=== PATIENT | male | born 1960 | race Caucasian/White ===

== ENCOUNTER 2016-12-31 18:10 | Emergency (ER) | payer OTHER ==
[~2016-12-31] VITALS: Ht 172.7 cm; Wt 79.4 kg
[~2016-12-31 18:10] MED LIST: ATORVASTATIN CA80 M1 PO; BLM PO; LEVOTHYROXINE50 MCG PO; LOSARTAN POTASS50 MG PO; MEDROL DOSEPAK1 PAC PO; ROBITUSSIN W/CO10 ML PO; TESSALON PERLE100 MG PO
[2016-12-31] MEDS ORDERED: LOSARTAN POTASS50 M1 PO (18:49)
--- NOTE | 2016-12-31 18:49 | ED GENERAL ADULT ---
History of Present Illness General Chief Complaint: General Adult Stated Complaint: PT HAS HIGH BLOOD PRESSURE Source: patient Exam Limitations: no limitations Vital Signs & Intake/Output Vital Signs & Intake/Output Vital Signs Date Time Temp Pulse Resp B/P Pulse O2 O2 Flow FiO2 Ox Delivery Rate 12/31 1937 82 126/75 12/31 1915 80 18 135/76 12/31 1855 86 138/84 12/31 1830 98 Room Air 12/31 1814 97.2 82 18 166/94 99 Room Air ED Intake and Output 01/01 0000 12/31 1200 Intake Total Output Total Balance Patient 175 lb Weight Allergies Coded Allergies: NO KNOWN ALLERGIES (07/29/16) Reconcile Medications Atorvastatin Calcium 10 MG TABLET 1 TAB PO Monday CHOLESTEROL ( Reported) Cholecalciferol (Vitamin D3) (Vitamin D) 2,000 UNIT TABLET 1 TAB PO DAILY SUPPLEMENT (Reported) Cyanocobalamin (Vitamin B-12) (Vitamin B-12) 500 MCG TAB.SUBL 1 TAB PO DAILY SUPPLEMENT (Reported) Levothyroxine Sodium 50 MCG TABLET 1 TAB PO DAILY THYROID (Reported) Lorazepam (Ativan) 0.5 MG TABLET 1 TAB PO BIDP PRN anxiety Losartan Potassium 50 MG TABLET 1 TAB PO BID BP (Reported) Multivitamin (Multi-Day Vitamins) 1 EACH TABLET 1 TAB PO DAILY SUPPLEMENT ( Reported) Triage Note: PT REPORTS TO HAVE CHECKED HIS BP AT HOME AND IT WAS 176/100 FOR HE IS REQUESTING EVALUATION. HE ALSO REPORTS HX OF ANXIETY. CURRENTLY ON LOSARTAN 50 MG BID. HAS BEEN TAKING IT PRESCRIBED. Triage Nurses Notes Reviewed? yes Onset: Abrupt Duration: hour(s):, resolved prior to arrival No Modifying Factors: none HPI: 56-year-old male with a history of hypertension and anxiety comes into emergency room for further evaluation of blood pressure being elevated at home. Patient reports that he is in the process of getting an MRA of his brain because he's been having this mild dull headache 1 out of 10 for the past 6-8 weeks. He was concerned because his family members have of aneurysms. He denies any vomiting chest pain shortness of breath abdominal pain. He reports that today he checked his blood pressure and reports it was in the 140s. He said that was low back eyes he went to lay down recheck in a few more times and it went up to 170s. Patient denies like I said any chest pain shortness of breath diaphoresis nausea vomiting or headache from any change in its baseline. Denies any slurring words or confusion. Patient reports he was feeling extremely anxious and felt a pulsation in the back of his neck but that has since resolved. (DARVIN JACKSON) Past History Travel History Traveled to [place] past 21 day No Medical History Any Pertinent Medical History? see below for history Neurological: NONE EENT: NONE Cardiovascular: hypertension, hyperlipidemia Respiratory: NONE Gastrointestinal: NONE Hepatic: NONE Renal: NONE Musculoskeletal: NONE Psychiatric: NONE Endocrine: hypothyroidism Blood Disorders: NONE MANAGER OF PATIENT/Reproductive: NONE Tetanus Vaccine: 01/26/13 Surgical History Surgical History: non-contributory Psychosocial History What is your primary language Kazakh Tobacco Use: Never used Family History Hx Contributory? No (DARVIN JACKSON) Review of Systems Review of Systems Constitutional: Reports: no symptoms. EENTM: Reports: no symptoms. Respiratory: Reports: no symptoms. Cardiovascular: Reports: no symptoms. GI: Reports: no symptoms. Genitourinary: Reports: no symptoms. Musculoskeletal: Reports: no symptoms. Skin: Reports: no symptoms. Neurological/Psychological: Reports: see HPI. Hematologic/Endocrine: Reports: no symptoms. Immunologic/Allergic: Reports: no symptoms. All Other Systems: Reviewed and Negative (DARVIN JACKSON) Physical Exam Physical Exam General Appearance: well developed/nourished, no apparent distress, alert, awake Head: atraumatic, normal appearance Eyes: Bilateral: normal appearance, PERRL, EOMI. Ears, Nose, Throat: normal pharynx, normal ENT inspection, hearing grossly normal Neck: normal inspection, supple, full range of motion Respiratory: normal breath sounds, chest non-tender, no respiratory distress Cardiovascular: regular rate/rhythm Gastrointestinal: soft Back: normal inspection Extremities: normal inspection, normal range of motion Neurologic/Psych: no motor/sensory deficits, awake, alert, oriented x 3, normal gait, normal mood/affect, repairer helper II-XII nml as tested, finger to nose intact, mas to heel intact Skin: intact, normal color Core Measures ACS in differential dx? No CVA/TIA Diagnosis: No Severe Sepsis Present: No Septic Shock Present: No (DARVIN JACKSON) Progress Differential Diagnoses I considered the following diagnoses in my evaluation of the patient: Hypertensive urgency, hypertension, anxiety, CVA, acute PA, aneurysm, tension headache, migraine headache, sinus disease, Plan of Care: Current Medications Sig/Usha Start time Last Medication Dose Stop Time Status Admin Lorazepam 0.5 MG ONE ONE 12/31 1899 UNVr (Ativan) 12/31 1900 Initial ED EKG: none Comments: 12/31/2016 7:15:25 PM Patient clinically looks well. Patient is nontoxic appearing. Patient is in no apparent distress. I offered patient a full evaluation with EKG blood work and CAT scan. Due to the fact that he is a symptomatically at the moment I told him it is likely not necessary to do a complete workup. His repeat blood pressure significantly improved. Patient given a dose of Ativan and will be observed here in the emergency room. As stated before patient has no symptoms at this time. Patient has not had any chest pain or tenderness of breath. Patient saw a manager electronic back this past fall and had a normal stress test echocardiogram and EKG he reports. Patient reports that he just got very anxious this afternoon. (HARRISON TRIPP,DARVIN) Departure Departure Disposition: HOME OR SELF CARE Condition: Stable Clinical Impression Primary Impression: Hypertension Secondary Impressions: Anxiety Referrals: MAGY ESPANA,MALCOLM Avelar (PCP/Family) Additional Instructions: Take ativan as prescribed as needed for anxiety. F/U for MRA of you brain as already scheduled. return to ed if any chest pain, shrtoness of breath, increased headache, vomiting, sweating, confusion, or any other concerns/ worsening of symptoms. Please go over results of todays visit with your primary care dr and contact them on monday to let them know you were here in ER. Follow-up with your primary care physician this week. Return to the emergency room at any time sooner if you have worsening of your symptoms or any other concerns. Please note that there might be incidental findings in your evaluation that are unrelated to the current emergency department visit. Please notify your primary care doctor about this emergency department visit in order to obtain and review all of the testing performed so that these incidental findings can be monitored as needed. If you were prescribed a narcotic use caution as this medication is highly addictive and will make you drowsy use for breakthrough pain only. No driving, drinking alcohol or operating machinary when taking. If you had an x-ray performed, please understand that some fractures may not be seen on the initial set of x-rays. If your symptoms persist you might need a repeat set of x-rays to check for such a fracture. If you had a laceration evaluated, please understand that foreign bodies such as glass or wood may not be visible to the naked eye or on plain x-rays. If the wound becomes red, swollen, increasingly more painful or if there is any drainage from the wound, please have it reevaluated by a physician for the possibility of a retained foreign body. Departure Forms: Customer Survey General Discharge Information Prescriptions: Current Visit Scripts Lorazepam (Ativan) 1 TAB PO BIDP PRN anxiety #20 TAB (DARVIN JACKSON) PA/QUALITY ASSURANCE Co-Sign Statement Statement: ED Attending supervision documentation- [] I saw and evaluated the patient. I have also reviewed all the pertinent lab results and diagnostic results. I agree with the findings and the plan of care as documented in the PA's/QUALITY ASSURANCE's documentation. [X] I have reviewed the ED Record and agree with the PA's/QUALITY ASSURANCE's documentation. [] Additions or exceptions (if any) to the PAs/QUALITY ASSURANCE's note and plan are summarized below: [] (JHONATHAN MCINTYRE DO) Critical Care Note Critical Care Note Critical Care Time: non-applicable (DARVIN JACKSON)
[2016-12-31] MEDS ORDERED: VITAMIN D2000 UNI1 PO (18:50)
[2016-12-31] MEDS ORDERED: VITAMIN B-12500 MC1 PO (18:50)
[2016-12-31] MEDS ORDERED: MULTI-DAY VITA1 EACH PO (18:51)
[2016-12-31 19:37] VITALS: BP 126/75
[2016-12-31] MEDS ORDERED: ATIVAN0.5 M1 PO (19:45)
== END 2016-12-31 19:53 ==
LOC: ERH 18:10
DX: I10 Essential (primary) hypertension (principal); F41.9 Anxiety disorder, unspecified

== ENCOUNTER 2017-01-22 11:48 | Inpatient (IN) | payer OTHER ==
[~2017-01-22] VITALS: Ht 172.7 cm; Wt 76.4 kg
[~2017-01-22 11:48] MED LIST changes: +ATIVAN0.5 M1 PO; +LOSARTAN POTASS50 M1 PO; +MULTI-DAY VITA1 EACH PO; +VITAMIN B-12500 MC1 PO; +VITAMIN D2000 UNI1 PO
--- NOTE | 2017-01-22 12:08 | NUR ---
RECEIVED 56 YO MALE C/O SEVERE RIGHT CHEST AREA PAIN RADIATING TO RIGHT SHOULDER AND UPPER PAIN INTERMITTENTLY, STARTED 5 DAYS AGO IN [facility] MID STERNAL CHEST PAIN. PARAMEDICS WERE CALLED, SAID HE WASN'T HAVING A AK. PT THINKS MOVEMENT BRINGS IT ON, BUT HE SAID IT DOESN'T FEEL LIKE STRESS. PAIN OCCURED 3X TODAY ALREADY.
--- NOTE | 2017-01-22 12:15 | ED CARDIAC/CP/PALPITATIONS ---
History of Present Illness General Chief Complaint: General Adult Stated Complaint: PAIN TO RIGHT CHEST AND SHOULDER WITH MOVEMENT Source: patient Exam Limitations: no limitations Vital Signs & Intake/Output Vital Signs & Intake/Output Vital Signs Date Time Temp Pulse Resp B/P Pulse O2 O2 Flow FiO2 Ox Delivery Rate 01/22 2125 82 122/88 01/22 1900 98.3 101 20 118/78 96 Room Air 01/22 1850 97.0 92 20 127/78 96 Room Air 01/22 1710 98.9 89 18 132/89 98 Room Air 01/22 1530 98.4 94 20 156/96 99 Room Air 01/22 1401 86 20 145/96 100 Room Air 01/22 1359 100 Room Air Room Air 01/22 1208 98.3 96 18 129/87 99 Room Air Allergies Coded Allergies: NO KNOWN ALLERGIES (07/29/16) Reconcile Medications Atorvastatin Calcium 10 MG TABLET 1 TAB PO Monday CHOLESTEROL ( Reported) Cholecalciferol (Vitamin D3) (Vitamin D) 2,000 UNIT TABLET 1 TAB PO DAILY SUPPLEMENT (Reported) Cyanocobalamin (Vitamin B-12) (Vitamin B-12) 500 MCG TAB.SUBL 1 TAB PO DAILY SUPPLEMENT (Reported) Levothyroxine Sodium 50 MCG TABLET 1 TAB PO DAILY THYROID (Reported) Lorazepam (Ativan) 0.5 MG TABLET 1 TAB PO BIDP PRN anxiety Losartan Potassium 50 MG TABLET 1 TAB PO BID BP (Reported) Metoprolol Succinate 25 MG TAB 1 TAB PO DAILY BLOOD PRESSURE (Reported) Multivitamin (Multi-Day Vitamins) 1 EACH TABLET 1 TAB PO DAILY SUPPLEMENT ( Reported) Triage Note: RECEIVED 56 YO MALE C/O SEVERE RIGHT CHEST AREA PAIN RADIATING TO RIGHT SHOULDER AND UPPER PAIN INTERMITTENTLY, STARTED 5 DAYS AGO IN [facility] MID STERNAL CHEST PAIN. PARAMEDICS WERE CALLED, SAID HE WASN'T HAVING A TN. PT THINKS MOVEMENT BRINGS IT ON, BUT HE SAID IT DOESN'T FEEL LIKE STRESS. PAIN OCCURED 3X TODAY ALREADY. Triage Nurses Notes Reviewed? yes HPI: Patient is a 56-year-old male presents complaining of right-sided chest pain. Patient reports that Monday he woke at 1 AM, while on a business trip in [facility], with intense lower sternal pain and a gas sensation. Patient had increased belching. Pain would improve with belching, and sitting up. Pain was worse with lying flat at the time. Patient reports pain began radiating to his right shoulder and down his right upper back. EMS was called and he had an EKG which was reportedly normal. Patient did not go to the hospital for evaluation at that time. Patient took 2 Gas-X tabs on Monday with some improvement. Patient reports that the gas sensation and lower sternal sensation have resolved. Patient continues to get right-sided chest pain that is intermittent and worsens with walking and movement. Sitting and relaxing improves the discomfort. Patient was seen by his primary care doctor on Monday and scheduled for right upper quadrant ultrasound this week. Pain at times is severe currently as mild to moderate. Patient is unable to describe the pain. Patient had an echocardiogram 5-6 months ago which was reportedly normal. Patient has never had a stress test. Patient denies dyspnea, lower extremity pain or swelling, fevers, chills, vomiting. (LUISANA NGUYEN) Past History Travel History Traveled to [place] past 21 day No Medical History Any Pertinent Medical History? see below for history Neurological: NONE EENT: NONE Cardiovascular: hypertension, hyperlipidemia Respiratory: NONE Gastrointestinal: NONE Hepatic: NONE Renal: NONE Musculoskeletal: NONE Psychiatric: NONE Endocrine: hypothyroidism Blood Disorders: NONE PATROL AGENT/Reproductive: NONE Tetanus Vaccine: 01/26/13 Surgical History Surgical History: non-contributory Psychosocial History What is your primary language Serbian Tobacco Use: Never used Illicit Drug Use: denies illicit drug use Family History Hx Contributory? Yes (sister hx of DVT, mother CAD) (LUISANA NGUYEN) Review of Systems Review of Systems Constitutional: Denies: chills, fever. EENTM: Reports: no symptoms. Respiratory: Denies: cough, short of breath. Cardiovascular: Reports: see HPI. GI: Reports: see HPI. Genitourinary: Reports: no symptoms. Musculoskeletal: Reports: back pain. Skin: Reports: no symptoms. Neurological/Psychological: Reports: anxiety. Hematologic/Endocrine: Reports: no symptoms. Immunologic/Allergic: Reports: no symptoms. (LUISANA NGUYEN) Physical Exam Physical Exam General Appearance: well developed/nourished, alert, awake Head: atraumatic, normal appearance Eyes: Bilateral: normal appearance, PERRL, EOMI. Ears, Nose, Throat: normal pharynx, normal ENT inspection, hearing grossly normal Neck: normal inspection, supple, full range of motion Respiratory: normal breath sounds, chest non-tender, no respiratory distress, lungs clear Cardiovascular: regular rate/rhythm (no appreciable murmur) Gastrointestinal: normal bowel sounds, soft, non-tender, negative Choudhury sign Back: normal inspection, normal range of motion Extremities: normal inspection, normal capillary refill, normal range of motion, no edema Neurologic/Psych: no motor/sensory deficits, awake, alert, oriented x 3, normal gait, normal mood/affect Skin: intact, normal color, warm/dry Lymphatic: no anterior cervical olayinka Core Measures ACS in differential dx? Yes ASA ordered for poss ACS? Yes-ordered Severe Sepsis Present: No Septic Shock Present: No (ROSE TRIPP,LUISANA) Progress Differential Diagnosis: AMI, aortic dissection, cholecystitis, CHF/pulm edema, pericarditis, pneumonia, pulmonary embolism, PUD/GERD, unstable angina, hiatal hernia Plan of Care: Orders Procedure Date/time Status Nothing by Mouth 01/23 B Active EKG 01/23 0800 Active PHOSPHORUS 01/23 06 Active MAGNESIUM 01/23 06 Active HEPATIC FUNCTION PANEL 01/23 06 Active CBC WITHOUT DIFFERENTIAL 01/23 06 Active BASIC ELECTROLYTES PLUS BUN&CR 01/23 06 Active TROPONIN LEVEL 01/23 0200 Active EKG 01/23 0200 Active Heart Healthy Diet 01/22 D Complete Weight 01/22 210 Active Lab Add-on Test 01/22 2043 Active Heparin Drip- ACS 01/22 2038 Active Vital Signs 01/23 2032 Active Teach/Educate 01/23 2032 Active Pain Treatment and Response 01/23 2032 Active Nutritional Intake, Monitor 01/23 2032 Active Isolation 01/23 2032 Active Intake & Output 01/23 2032 Active Patient Care Conference 01/23 2032 Active Activity/Ambulation 01/23 2032 Active PARTIAL THROMBOPLASTIN TIME 01/22 2030 Complete TROPONIN LEVEL 01/23 2000 Complete EKG 01/23 2000 Active Pathway - chart 01/22 1710 Active House Staff 01/22 1710 Active Patient Data 01/22 1710 Active Code Status 01/22 1710 Active Patient Data 01/22 1652 Active URINALYSIS 01/22 1633 Complete Admit to inpatient 01/22 1606 Active Add-on Test (ER Only) 01/22 1401 Active Intake & Output 01/22 1357 Active EKG 01/22 1336 Active THYROID STIMULATING HORMONE 01/22 1251 Active PARTIAL THROMBOPLASTIN TIME 01/22 1251 Complete PROTHROMBIN TIME 01/22 1251 Complete PHOSPHORUS 01/22 1251 Active MAGNESIUM 01/22 1251 Active GLYCOSYLATED HGB 01/22 1251 Active FREE T4 01/22 1251 Active Telemetry/Television Repairer 01/22 1233 Active TROPONIN LEVEL 01/22 1233 Active LIPASE 01/22 1233 Active D-DIMER 01/22 1233 Complete COMPREHENSIVE METABOLIC PANEL 01/22 1233 Active CBC WITHOUT DIFFERENTIAL 01/22 1233 Complete EKG 01/22 1210 Active VTE Mechanical Prophylaxis 01/22 UNK Active Telemetry/Television Repairer 01/22 UNK Active ECHOCARDIOGRAM 01/22 UNK Active Current Medications Sig/Usha Start time Last Medication Dose Stop Time Status Admin Atorvastatin Calcium 10 MG 01/23 1000 AC (Lipitor) Cholecalciferol 2,000 IU DAILY 01/23 1000 AC (Vitamin D) Clopidogrel Bisulfate 75 MG DAILY 01/23 1000 AC (Plavix) Cyanocobalamin 500 MCG DAILY 01/23 1000 AC (Vitamin B12) Metoprolol Succinate 25 MG DAILY 01/23 1000 AC (Toprol XL) Multivitamins 1 TAB DAILY 01/23 1000 AC Therapeutic (Theragran-M Vitamins Tabs) Levothyroxine Sodium 0.05 MG DAILY AC 01/23 0700 AC (Synthroid) Acetaminophen 650 MG Q6P PRN 01/22 1715 AC (Tylenol) Oxycodone/ 1 TAB Q6P PRN 01/22 1715 AC Acetaminophen (Percocet) Oxycodone/ 2 TAB Q6P PRN 01/22 1715 AC Acetaminophen (Percocet) Laboratory Tests 01/22/17 2020: Troponin I 1.31 *H, APTT 57 H 01/22/17 1759: Urine Color YEL, Urine Clarity CLEAR, Urine pH 6.0, Ur Specific Lyon 1.015, Urine Protein NEG, Urine Ketones TRACE H, Urine Nitrite NEG, Urine Bilirubin NEG, Urine Urobilinogen 0.2, Ur Leukocyte Esterase NEG, Ur Microscopic EXAM NOT REQUIRED, Urine Hemoglobin NEG, Urine Glucose NEG 01/22/17 1251: Anion Gap 14, Estimated GFR > 60, BUN/Creatinine Ratio 26.0 H, Glucose 146 H, Hemoglobin A1c Pending, Calcium 10.2, Phosphorus 3.8, Magnesium 2.1, Total Bilirubin 1.0, AST 41, ALT 68, Alkaline Phosphatase 86, Troponin I 0.99 *H, Total Protein 7.7, Albumin 4.9, Globulin 2.8, Albumin/Globulin Ratio 1.8, Lipase 78, TSH 1.790, Free T4 1.45, PT 11.3, INR 1.08, APTT 30, D-Dimer < 200, CBC w Diff NO MAN DIFF REQ, RBC 5.51, MCV 90.0, MCH 30.6, RDW 13.5, MPV 9.9, Gran % 68.5, Lymphocytes % 23.3, Monocytes % 6.2, Eosinophils % 1.8, Basophils % 0.2, Absolute Granulocytes 5.7, Absolute Lymphocytes 2.0, Absolute Monocytes 0.5, Absolute Eosinophils 0.2, Absolute Basophils 0, PUBS MCHC 34.0 Patient had echocardiogram at [facility] 09/2016, results reviewed. 01/22/2017 1:47:33 PM: Results of labs discussed with patient and his . Patient reports that right-sided chest pain is currently 0.5 out of 10. Aspirin ordered. Discussed with Dr. Raman. Repeat EKG performed, no acute changes from initial EKG. Awaiting d-dimer 01/22/2017 2:01:23 PM: Discussed with Dr. Piedra: start on heparin, will come to see aptient in the ED within the next 10-20 minutes Discussed with and seen by Dr. Piedra: Patient can be admitted to telemetry. Dr. Raman evaluated patient. Dr. Raman discussed patient with Dr. Ardon for admission. (ROSE TRIPP,LUISANA) Diagnostic Imaging: Viewed by Me: Radiology Read. Discussed w/RAD: Radiology Read. CXR Impression: PATIENT: ARTURO MENDOZA PRESENT AGE: 56 PATIENT ACCOUNT NO: [id number] : 58 LOCATION: [facility] ORDERING PHYSICIAN: LUISANA TRIPP SERVICE DATE: 01/22/17 EXAM TYPE: RAD - XRY-CHEST XRAY, PA AND LATERAL EXAMINATION: XR CHEST CLINICAL INFORMATION: Chest pain. COMPARISON: None TECHNIQUE: 2 views of the chest were obtained. FINDINGS: Both lung jama are symmetrically expanded and appear clear. The cardiomediastinal silhouette is within normal limits. There is no pleural effusion present. The visualized upper abdomen is unremarkable. Mild scoliotic changes are noted in the spine. IMPRESSION: No acute cardiopulmonary disease. DICTATED BY: JULIANE SPEARS MD DATE/TIME DICTATED:01/22/171312 ELECTRICIAN SHOP:FARAZ DATE/ TIME TRANSCRIBED:01/22/171312 CONFIDENTIAL, DO NOT COPY WITHOUT APPROPRIATE AUTHORIZATION. <Electronically signed in Other Vendor System> SIGNED BY: JULIANE SPEARS MD 01/22/171316 Initial ED EKG: normal sinus rhythm 90 bpm, borderline left axis deviation, no acute ST/T-wave abnormalities. Repeat EKG: unchanged Rhythm Strip: normal sinus rhythm (LUISANA NGUYEN) Departure Departure Disposition: STILL A PATIENT Condition: Fair Clinical Impression Primary Impression: NSTEMI (non-ST elevated myocardial infarction) Referrals: MALCOLM BHATTI MD (PCP/Family) Departure Forms: Customer Survey General Discharge Information Admission Note Spoke With: BRENDA ARDON M.D Documentation of Exam: Documentation of any treatments & extenuating circumstances including Concerns Regarding Discharge (functional status, medication knowledge or non-compliance, living conditions, etc.) that warrant an admission rather than observation: Continuous cardiac monitoring, IV heparin, cardiology consultation, serial EKGs, serial troponins, echocardiogram, likely transfer for cardiac catheterization (LUISANA NGUYEN) PA/MAINSPRING TORQUE TESTER Co-Sign Statement Statement: ED Attending supervision documentation- [X] I saw and evaluated the patient. I have also reviewed all the pertinent lab results and diagnostic results. I agree with the findings and the plan of care as documented in the PA's/MAINSPRING TORQUE TESTER's documentation. [X] I have reviewed the ED Record and agree with the PA's/MAINSPRING TORQUE TESTER's documentation. [] Additions or exceptions (if any) to the PAs/MAINSPRING TORQUE TESTER's note and plan are summarized below: [] (RICH ESPANA,ABBI) Critical Care Note Critical Care Note Critical Care Time: 30-74 min (LUISANA NGUYEN)
--- NOTE | 2017-01-22 12:19 | NUR ---
PT AMBULATORY TO [facility] RM 17 PA AAYUSH ROSE INTO EVALUATE
--- NOTE | 2017-01-22 12:37 | NUR ---
PT AMBULATORY TO RADIOLOGY
--- NOTE | 2017-01-22 12:54 | NUR ---
LABS DRAWN AND SENT BY THIS [facility] (BLUE,SST,LAV)
[2017-01-22 13:15] LABS: ABSOLUTE BASOPHIL COUNT 0 /CUMM (0.0-0.2); ABSOLUTE EOSINOPHIL COUNT 0.2 /CUMM (0.0-0.7); ABSOLUTE GRANULOCYTE CT 5.7 /CUMM (1.4-6.5); ABSOLUTE MONOCYTE COUNT 0.5 /CUMM (0.10-0.60); BASOPHIL % 0.2 % (0.0-2.0); EOSINOPHIL % 1.8 % (0-5); GRANULOCYTE % 68.5 % (42.2-75.2); HEMATOCRIT 49.6 % (42-52); MEAN CORPUSCULAR HGB 30.6 PG (27.0-31.0); MEAN PLATELET VOLUME 9.9 FL (7.4-10.4); PLATELET COUNT 201 /CUMM (130-400); RBC DISTRIBUTION WIDTH 13.5 % (11.5-14.5); RED BLOOD CELL CT 5.51 /CUMM (4.70-6.10); WHITE BLOOD CELL COUNT 8.4 /CUMM (4.8-10.8)
--- NOTE | 2017-01-22 13:17 | RADIOLOGY REPORT ---
EXAMINATION: XR CHEST CLINICAL INFORMATION: Chest pain. COMPARISON: None TECHNIQUE: 2 views of the chest were obtained. FINDINGS: Both lung jama are symmetrically expanded and appear clear. The cardiomediastinal silhouette is within normal limits. There is no pleural effusion present. The visualized upper abdomen is unremarkable. Mild scoliotic changes are noted in the spine. IMPRESSION: No acute cardiopulmonary disease.
--- NOTE | 2017-01-22 13:31 | NUR ---
CRITICAL TEST RESULTS [id number] ARTURO MENDOZA 56 M TESTS AND RESULTS: TROPONIN 0.99 Results received and read back by: CHELITA MENCHACA Results received date and time: 01/22/17 1332 The following provider was notified of the results, and read the results back: MD RICH Notified date and time: 01/22/17 at 1332
--- NOTE | 2017-01-22 13:36 | NUR ---
QASIM ROSE AT BEDSIDE
--- NOTE | 2017-01-22 13:39 | NUR ---
REPEAT EKG BEING DONE AT PRESENT BY DELFINO FLETCHER
[2017-01-22] MEDS ORDERED: METOPROLOL SUCC25 M1 PO (13:58)
--- NOTE | 2017-01-22 14:00 | NUR ---
PT MEDICATED WITH ASPIRIN PER ORDERS IV ACCESS ESTABLISHED, #20 LAC
[2017-01-22 14:14] LABS: PT 11.3 SEC (9.4-12.5); PTT 30 SEC (25-37)
--- NOTE | 2017-01-22 14:33 | NUR ---
2ND IV ACCESS ESTABLISHED, #22 LH PT MEDICATED WITH HEPARIN BOLUS OF 4000 UNITS AND HEPARIN GTT INITIATED AT 18.92 MLS/HR (946.8 UNITS/HR). VERIFIED WITH PAUL RENE. WILL CONTINUE TO MONITOR.
--- NOTE | 2017-01-22 14:57 | NUR ---
DR SPEAR HERE TO EVALUATE PATIENT
--- NOTE | 2017-01-22 16:18 | Cons- Cardiology ---
General Information and HPI Consulting Request Date of Consult: 01/22/17 Requested By: Cindy GRANT OLUGBENGA Reason for Consult: Recurrent chest pain. Source of Information: patient, old records Exam Limitations: no limitations History of Present Illness: Mr. King Olvera is a 56-year-old male with a history of hypertension , dyslipidemia, and strong family history for premature atherosclerotic disease (diabetic mother had an OK at age 55 years, subsequent 2 CABGs, SCD at 79 years) who presented with recurrent episodes of exertional right chest discomfort with, at times, radiation down his right arm. He has had rare (once yearly) episodes of epigastric discomfort over many years that he has attributed to "gas", but recently while on a business trip had similar and severe epigastric discomfort that worsened when he walked to his hotel lobby where a staff member who was also a nurse called for shoe lay out planner. He reportedly had an unremarkable ECG and declined ED evaluation. Since that time, he has continued to have frequent episodes with radiation to his right shoulder and arm, many of which occurred with exertion. He was able, however, on several occasions to go on hikes without any symptoms. He has no known history of coronary, valvular, dysrhythmic/conduction disease, or cardiomyopathy. Allergies/Medications Allergies: Coded Allergies: NO KNOWN ALLERGIES (07/29/16) Home Med List: Atorvastatin Calcium 10 MG TABLET 1 TAB PO Monday CHOLESTEROL ( Reported) Cholecalciferol (Vitamin D3) (Vitamin D) 2,000 UNIT TABLET 1 TAB PO DAILY SUPPLEMENT (Reported) Cyanocobalamin (Vitamin B-12) (Vitamin B-12) 500 MCG TAB.SUBL 1 TAB PO DAILY SUPPLEMENT (Reported) Levothyroxine Sodium 50 MCG TABLET 1 TAB PO DAILY THYROID (Reported) Lorazepam (Ativan) 0.5 MG TABLET 1 TAB PO BIDP PRN anxiety Losartan Potassium 50 MG TABLET 1 TAB PO BID BP (Reported) Metoprolol Succinate 25 MG TAB 1 TAB PO DAILY BLOOD PRESSURE (Reported) Multivitamin (Multi-Day Vitamins) 1 EACH TABLET 1 TAB PO DAILY SUPPLEMENT ( Reported) Review of Systems Review of Systems: A 14 point system review was obtained and was noncontributory, other than for the fact that he wears glasses Past History Travel History Traveled to [place] past 21 day No Medical History Neurological: NONE EENT: NONE Cardiovascular: hypertension, hyperlipidemia Respiratory: NONE Gastrointestinal: NONE Hepatic: NONE Renal: NONE Musculoskeletal: NONE Psychiatric: NONE Endocrine: hypothyroidism Blood Disorders: NONE 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 Surgical History Surgical History: non-contributory Psychosocial History Illicit Drug Use: denies illicit drug use Exam & Diagnostic Data Vital Signs and I&O Vital Signs Date Time Temp Pulse Resp B/P Pulse O2 O2 Flow FiO2 Ox Delivery Rate 01/22 1530 98.4 94 20 156/96 99 Room Air 01/22 1401 86 20 145/96 100 Room Air 01/22 1359 100 Room Air Room Air 01/22 1208 98.3 96 18 129/87 99 Room Air Intake & Output 01/22 1600 01/22 0800 01/22 0000 01/21 1600 01/21 0000 Intake Total 60 Output Total Balance 60 Intake, Oral 60 Patient 174 lb Weight Physical Exam: Well-developed, well-nourished middle-aged male in no acute distress with nasal oxygen in place. Vital signs: See above. HEENT: Normocephalic, atraumatic, EOMI, moist medius membranes. : No JVD, no bruits. Lungs: Clear to auscultation bilaterally Heart: S1, S2 no murmur, gallop, or rub appreciated. PMI fifth ICS at MCL. Been: Soft, nontender, positive bowel sounds. Extremities: No edema. Peripheral pulses: Symmetrical and intact. Labs/Julien Results: Laboratory Tests 01/22 1251 Chemistry Sodium (137 - 145 mmol/L) 139 Potassium (3.5 - 5.1 mmol/L) 5.0 Chloride (98 - 107 mmol/L) 101 Carbon Dioxide (22 - 30 mmol/L) 24 Anion Gap (5 - 16) 14 BUN (9 - 20 mg/dL) 26 H Creatinine (0.7 - 1.2 mg/dL) 1.0 Estimated GFR (>60 ml/min) > 60 BUN/Creatinine Ratio (7 - 25 %) 26.0 H Glucose (65 - 99 mg/dL) 146 H Calcium (8.4 - 10.2 mg/dL) 10.2 Total Bilirubin (0.2 - 1.3 mg/dL) 1.0 AST (17 - 59 U/L) 41 ALT (21 - 72 U/L) 68 Alkaline Phosphatase (< 127 U/L) 86 Troponin I (<0.11 ng/ml) 0.99 *H Total Protein (6.3 - 8.2 g/dL) 7.7 Albumin (3.5 - 5.0 g/dL) 4.9 Globulin (1.9 - 4.2 gm/dL) 2.8 Albumin/Globulin Ratio (1.1 - 2.2 %) 1.8 Lipase (23 - 300 U/L) 78 Coagulation PT (9.4 - 12.5 SEC) 11.3 INR (0.90 - 1.17) 1.08 APTT (25 - 37 SEC) 30 D-Dimer (70 - 232 ng/ml) < 200 Hematology CBC w Diff NO MAN DIFF REQ WBC (4.8 - 10.8 /CUMM) 8.4 RBC (4.70 - 6.10 /CUMM) 5.51 Hgb (14.0 - 18.0 G/DL) 16.9 Hct (42 - 52 %) 49.6 MCV (80.0 - 94.0 FL) 90.0 MCH (27.0 - 31.0 PG) 30.6 RDW (11.5 - 14.5 %) 13.5 Plt Count (130 - 400 /CUMM) 201 MPV (7.4 - 10.4 FL) 9.9 Gran % (42.2 - 75.2 %) 68.5 Lymphocytes % (20.5 - 51.1 %) 23.3 Monocytes % (1.7 - 9.3 %) 6.2 Eosinophils % (0 - 5 %) 1.8 Basophils % (0.0 - 2.0 %) 0.2 Absolute Granulocytes (1.4 - 6.5 /CUMM) 5.7 Absolute Lymphocytes (1.2 - 3.4 /CUMM) 2.0 Absolute Monocytes (0.10 - 0.60 /CUMM) 0.5 Absolute Eosinophils (0.0 - 0.7 /CUMM) 0.2 Absolute Basophils (0.0 - 0.2 /CUMM) 0 PUBS MCHC (33.0 - 37.0 G/DL) 34.0 Diagnostic Data EKG Results (01/22/2017) sinus rhythm, possible left atrial abnormality, and minor nondiagnostic T-wave abnormalities. CXR Results (01/21/2017) no acute cardiopulmonary process. Assessment/Plan Assessment/Plan 56-y-o male with a hx of HTN, HLD, & strong FH for CAD who presented with recurrent exertional episodes of right CP w/ radiation down his R arm, a modest troponin I elevation, and relatively minor electrocardiographic abnormalities. HPI and supporting laboratory work c/w ACS and would recommend admission. Recommendations: * Telemetry admission, follow-up electrocardiogram in a.m. or with further chest discomfort, follow-up troponins. * Start IV heparin, ASA, and clopidogrel with 600 mg load followed by 75 mg daily. * Continue outpatient cardiac regimen (statin, ARB, beta armani). * Continue present dosage of levothyroxine. * Schedule echo to assess for segmental WMAs, overall LV systolic/diastolic function, any LVH, etc. * Check glycosylated hemoglobin A1c, free T4, TSH, magnesium, etc. * Will discuss disposition/evaluation/management options with his attending cleaning staff supervisor (Tahir Phelps M.D.) at [facility] in the a.m. 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 * DVT prophylaxis being addressed by IV heparin. Further recommendations will follow, Thank you. Consult Acknowledgment - Thank you for your consult request.
--- NOTE | 2017-01-22 16:53 | History & Physical ---
FARIDA GANDHI 01/22/17 1653: General Information and HPI MD Statement: I have seen and personally examined ARTURO MENDOZA and documented this H&P. The patient is a 56 year old M who presented with a patient stated chief complaint of [chest pain]. Source of Information: patient, old records Exam Limitations: no limitations History of Present Illness: Mr. Mendoza is a 56-year-old gentleman with a PMH of hypertension, hyperlipidemia , hypothyroidism and anxiety who presented with complaints of multiple day duration substernal discomfort, right upper chest pain with radiation towards his right arm. Patient reports a long-standing history of anxiety and occasional once a year epigastric discomfort that he describes as a pressure against diaphragm normally relieved with belching and sitting upright. He had traveled to [place] for a business meeting when the symptoms started last Monday, similar substernal/gas sensation which was improved temporarily with sitting upright and belching, worsened with laying supine. This was followed by new symptoms that he described as right upper chest wall pain radiating down towards his bicep. He called EMS, EKG performed is unremarkable and he opted not to follow-up in the ER at the time. The next morning the right upper chest wall discomfort persisted for which he did obtain complete relief with OTC Gas-X. Along with these symptoms he reported frontal head pressure and facial flushing that normally coincides with an elevation in his blood pressure gets exacerbated with anxiety. Of note, the patient did have an MRA of his head on 01/03/17 with unremarkable findings in the setting of previous family history from cerebral aneurysm. ROS: He does report the epigastric discomfort coinciding with a few hours after eating meals. His last illness was October 2016 with URTI symptoms, nonproductive cough for about 6 weeks which has since resolved. His only new medications include metoprolol which was started this past Monday after he followed up with his PCP for the symptoms. The recurrence of the chest discomfort earlier this afternoon prompted him to come to the ED. Allergies/Medications Allergies: Coded Allergies: NO KNOWN ALLERGIES (07/29/16) Home Med list Atorvastatin Calcium 10 MG TABLET 1 TAB PO Monday CHOLESTEROL ( Reported) Cholecalciferol (Vitamin D3) (Vitamin D) 2,000 UNIT TABLET 1 TAB PO DAILY SUPPLEMENT (Reported) Cyanocobalamin (Vitamin B-12) (Vitamin B-12) 500 MCG TAB.SUBL 1 TAB PO DAILY SUPPLEMENT (Reported) Levothyroxine Sodium 50 MCG TABLET 1 TAB PO DAILY THYROID (Reported) Lorazepam (Ativan) 0.5 MG TABLET 1 TAB PO BIDP PRN anxiety Losartan Potassium 50 MG TABLET 1 TAB PO BID BP (Reported) Metoprolol Succinate 25 MG TAB 1 TAB PO DAILY BLOOD PRESSURE (Reported) Multivitamin (Multi-Day Vitamins) 1 EACH TABLET 1 TAB PO DAILY SUPPLEMENT ( Reported) Past History Travel History Traveled to [place] past 21 day No Medical History Neurological: NONE EENT: NONE Cardiovascular: hypertension, hyperlipidemia Respiratory: NONE Gastrointestinal: NONE Hepatic: NONE Renal: NONE Musculoskeletal: NONE Psychiatric: NONE Endocrine: hypothyroidism 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 EENTM: Reports: no symptoms. Cardiovascular: Reports: see HPI. Respiratory: Reports: no symptoms. GI: Reports: see HPI. Genitourinary: Reports: no symptoms. Musculoskeletal: Reports: see HPI. Skin: Reports: no symptoms. Neurological/Psychological: Reports: see HPI. Hematologic/Endocrine: Reports: no symptoms. Exam & Diagnostic Data Last 24 Hrs of Vital Signs/I&O Vital Signs Date Time Temp Pulse Resp B/P Pulse O2 O2 Flow FiO2 Ox Delivery Rate 01/22 1850 97.0 92 20 127/78 96 Room Air 01/22 1710 98.9 89 18 132/89 98 Room Air 01/22 1530 98.4 94 20 156/96 99 Room Air 01/22 1401 86 20 145/96 100 Room Air 01/22 1359 100 Room Air Room Air 01/22 1208 98.3 96 18 129/87 99 Room Air Intake & Output 01/22 1600 01/22 0800 01/22 0000 Intake Total 60 Output Total Balance 60 Intake, Oral 60 Patient 174 lb Weight Physical Exam General Appearance Alert, Cooperative, No Acute Distress, slightly anxious appearing Skin No Rashes, No Breakdown HEENT EOMI, Mucous Membr. moist/pink Cardiovascular Regular Rate, Normal S1, Normal S2 Lungs Clear to Auscultation, Normal Air Movement Abdomen Normal Bowel Sounds, Soft, No Tenderness Neurological Normal Speech Extremities No Edema, Normal Pulses Vascular Pulses Symmetrical Last 24 Hrs of Labs/Julien: Laboratory Tests 01/22/17 1759: Urine Color YEL, Urine Clarity CLEAR, Urine pH 6.0, Ur Specific [place] 1.015, Urine Protein NEG, Urine Ketones TRACE H, Urine Nitrite NEG, Urine Bilirubin NEG, Urine Urobilinogen 0.2, Ur Leukocyte Esterase NEG, Ur Microscopic EXAM NOT REQUIRED, Urine Hemoglobin NEG, Urine Glucose NEG 01/22/17 1251: Anion Gap 14, Estimated GFR > 60, BUN/Creatinine Ratio 26.0 H, Glucose 146 H, Calcium 10.2, Total Bilirubin 1.0, AST 41, ALT 68, Alkaline Phosphatase 86, Troponin I 0.99 *H, Total Protein 7.7, Albumin 4.9, Globulin 2.8, Albumin/ Globulin Ratio 1.8, Lipase 78, PT 11.3, INR 1.08, APTT 30, D-Dimer < 200, CBC w Diff NO MAN DIFF REQ, RBC 5.51, MCV 90.0, MCH 30.6, RDW 13.5, MPV 9.9, Gran % 68.5, Lymphocytes % 23.3, Monocytes % 6.2, Eosinophils % 1.8, Basophils % 0.2, Absolute Granulocytes 5.7, Absolute Lymphocytes 2.0, Absolute Monocytes 0.5, Absolute Eosinophils 0.2, Absolute Basophils 0, PUBS MCHC 34.0 Diagnostic Data EKG Results (01/22/2017) sinus rhythm, possible left atrial abnormality, and minor nondiagnostic T-wave abnormalities. CXR Results (01/21/2017) no acute cardiopulmonary process. Assessment/Plan Assessment: 56-year-old gentleman with a PMH of hypertension, hyperlipidemia, hypothyroidism and anxiety who presented with complaints of multiple day duration substernal discomfort, right upper chest pain with radiation towards his right arm. VS on admission: BP 129/87, HR 96, RR 18, SPO2 99% on RA, T 98.3 Pertinent labs: WBC 8.6, H&H 16.9/49.6, platelets 201, potassium 5.0, BUN/CR 26/ 1.0 glucose 146 INR: 1.08 D-dimer: Less than 200 Troponin: 0.99 Problem list: 1. Unstable angina 2. Elevated troponins 3. Hypertension 4. Epigastric abdominal discomfort 5. Hyperlipidemia 6. Hypothyroidism 7. Anxiety Plan: * Admit to telemetry for continuous cardiac monitoring * Cardiology on board. Appreciate input from Dr. Piedra * Patient has been seen by Dr. Phelps at [facility]. We'll plan to maintain him on heparin drip at this time, aspirin and Plavix with a tentative plan for transfer tomorrow for cardiac catheterization * NPO after midnight * We'll continue him on metoprolol 25 mg losartan 50 mg BID * Follow-up lipid panel in the a.m. Adjust dosage of atorvastatin based on ASCVD score * Epigastric discomfort that appears to have possible postprandial pattern: Despite negative LFTs, alk phos, DDX include nonobstructive cholelithiasis vs H pylori vs gastric/duodenal ulcer in the setting of high stress/chronic anxiety. The patient would likely benefit from further GI workup once his current cardiac issue has been resolved. He may benefit from follow-up EGD, H pylori breath test , PPI and treatment for possible underlying general anxiety disorder * PFTs from December 2016: TSH 2.520, free T4 1.08 * Patient reports frothy urine most noticeable in the mornings: UA unremarkable for proteinuria or infection at this time. Obtain baseline renal function from PCP to determine idela dosage of losartan moving forward * Diet: Heart healthy. NPO at midnight * DVT prophylaxis: Heparin drip * CODE STATUS: Full code As Ranked By This Provider Problem List: 1. NSTEMI (non-ST elevated myocardial infarction) 2. Hypertension 3. Epigastric discomfort 4. Hyperlipidemia 5. Hypothyroidism Core Measures/Miscellaneous Acute Coronary Syndrome ACS Diagnosis: Yes ASA W/I 24hr of admit Yes Beta-Lubna W/I 24hrs Yes LDL assessed W/I 24 hrs Yes Currently on Statin Yes Cerebrovascular Accident CVA/TIA Diagnosis: No Congestive Heart Failure CHF Diagnosis: No Venous Thromboembolism VTE Risk Factors: Age > 40 No [facility] VTE prophylaxis d/t: No contraindications No VTE Pharm Prophylaxis d/t: No contraindications VTE Diagnosis: No VTE Type: NONE VTE Confirmed by (Test): NONE Severe Sepsis Severe Sepsis Present: No Septic Shock Septic Shock Present: No Miscellaneous Documentation Attending Case Discussed With: BRENDA GRANT M.D Primary Care Physician: MALCOLM BHATTI MD Patient sees these Specialists Dr Phelps (electronics teacher) Level of Patient Care: Telemetry Resident Review Statement Resident Statement: examined this patient, discussed with internal medicine nurse practitioner, agreed with internal medicine nurse practitioner, discussed with family, reviewed EMR data (avail), discussed with nursing , reviewed images JUANITA ESPANABRENDA 01/22/17 1747: Attending MD Review Statement Attending Statement Attending MD Statement: examined this patient, discuss w/resident/PA/MILLED RUBBER TENDER, agreed w/resident/PA/MILLED RUBBER TENDER, reviewed EMR data (avail), discussed with nursing, discussed with case mgmt, amended to note Attending Assessment/Plan: 56-year-old male with history of hypertension, dyslipidemia and strong family history of premature coronary artery disease presents with recurrent episodes of chest pain. Apparently pain has been going on since earlier on in the week. It first started when he was in [place] on a business trip. He described the pain as epigastric discomfort however it worsened when ambulating. A staff member at the hotel he was in called EMS. He reports his EKG was unremarkable but declined to go to the emergency room for evaluation. He has since returned from a trip however continues to complain of dyspnea on exertion. He describes it as epigastric radiating upwards through the chest to the right shoulder. Denies shortness of breath. Denies palpitations. Denies any similar history past. Reports that he is able to go on hikes in the past with no symptoms. He has no personal history of coronary artery disease although his risk factors include hypertension and dyslipidemia. He came to the emergency room for evaluation. He has a nonischemic EKG He continues to complain of epigastric pain radiating to the right chest and right arm with exertion. His first troponin is elevated at 0.99. On examination he is likely comfortably in bed and not in any acute distress. He has no jugular venous distention. Heart sounds are regular with no audible bruit. He has no reproducible epigastric pain. He has a right upper quadrant tenderness. He has no lower extremity edema. Problems 1. Atypical chest pain with nonischemic EKG however abnormal troponins and strong family history raise concern for an acute coronary syndrome. Plan: -Admit to the inpatient general medical service for management of his acute coronary syndrome. - -Will require monitoring on the telemetry unit. -She has been started on IV heparin. Continue aspirin and Plavix as recommended by the cardiology service. -Echocardiogram to rule out wall motion abnormality and systolic/diastolic dysfunction. -Continue his home regimen of beta lubna therapy ARB and statin therapy. -Case was discussed with on-call electronics teacher Dr. Piedra. He has made decision to monitor the patient here at [facility] overnight and consider transfer for cardiac catheterization is recommended by the patient's electronics teacher Dr. Tahir Phelps.
--- NOTE | 2017-01-22 17:21 | NUR ---
PT MEDICATED WITH PLAVIX PER ORDERS
--- NOTE | 2017-01-22 17:47 | NUR ---
PT HAS A BED [id number]
--- NOTE | 2017-01-22 18:39 | NUR ---
REPORT TO PUAL KOROMA ON TELEMETRY
[2017-01-22 19:00] VITALS: BP 118/78
--- NOTE | 2017-01-22 20:39 | NUR ---
ADMISSION NOTE: PT ARRIVED TO FLOOR FROM ER WITH RN AND DISTRIBUTION. A+OX3, ON RA. VSS. DENIES CHEST PAIN AT THIS TIME. IV HEPARIN RUNNING AT 18.9 ML/HR OR 12 UNITS/KG/HR. NEXT PTT AT 2030. AT BEDSIDE. ORIENTED TO ROOM AND CALL [facility]. PT OOB INDEPENDENTLY. PT HAS GLASSES AND CELL PHONE WITH HIM.
[2017-01-22 21:35] LABS: PTT 57 SEC (25-37)
[2017-01-23 00:11] VITALS: BP 110/65
[2017-01-23 04:36] LABS: ABSOLUTE BASOPHIL COUNT 0 /CUMM (0.0-0.2); ABSOLUTE EOSINOPHIL COUNT 0.2 /CUMM (0.0-0.7); ABSOLUTE GRANULOCYTE CT 5.2 /CUMM (1.4-6.5); ABSOLUTE LYMPH COUNT 2.3 /CUMM (1.2-3.4); ABSOLUTE MONOCYTE COUNT 0.6 /CUMM (0.10-0.60); BASOPHIL % 0.3 % (0.0-2.0); EOSINOPHIL % 2.2 % (0-5); GRANULOCYTE % 62.6 % (42.2-75.2); MEAN CORPUSCULAR HGB 30.9 PG (27.0-31.0); MEAN CORPUSCULAR VOLUME 90.7 FL (80.0-94.0); MEAN PLATELET VOLUME 9.5 FL (7.4-10.4); PLATELET COUNT 184 /CUMM (130-400); RBC DISTRIBUTION WIDTH 13.8 % (11.5-14.5); RED BLOOD CELL CT 5.29 /CUMM (4.70-6.10); WHITE BLOOD CELL COUNT 8.2 /CUMM (4.8-10.8)
[2017-01-23 04:44] LABS: PTT 92 SEC (25-37)
[2017-01-23 08:00] VITALS: BP 100/60
--- NOTE | 2017-01-23 10:48 | PN- Housestaff ---
Subjective Follow-up For: Acute coronary syndrome Complaints: no complaints Tele-Events Since Last Visit: Normal sinus rhythm, heart rate between 71-94. No any overnight events Subjective: Patient is seen and examined at the bedside.
--- NOTE | 2017-01-23 11:07 | PN- Cardiology ---
Subjective Subjective: Remains anxious, comfortable. Denies any further chest discomfort on his present medical regimen. Telemetry has revealed no significant dysrhythmias. Objective Vital Signs and I&Os Vital Signs Date Time Temp Pulse Resp B/P Pulse O2 O2 Flow FiO2 Ox Delivery Rate 01/23 1002 88 110/70 01/23 0800 98.6 88 20 100/60 97 Room Air 01/23 0011 98.9 77 20 110/65 97 Room Air 01/22 2125 82 122/88 01/22 1900 98.3 101 20 118/78 96 Room Air 01/22 1850 97.0 92 20 127/78 96 Room Air 01/22 1710 98.9 89 18 132/89 98 Room Air 01/22 1530 98.4 94 20 156/96 99 Room Air 01/22 1401 86 20 145/96 100 Room Air 01/22 1359 100 Room Air Room Air 01/22 1208 98.3 96 18 129/87 99 Room Air Intake & Output 01/23 1600 01/23 0800 01/23 0000 01/22 1600 01/22 0800 01/22 0000 Intake Total 125 60 Output Total 1025 Balance -1025 125 60 Intake, IV 75 Intake, Oral 50 60 Output, Urine 1025 Patient 168 lb 174 lb Weight Physical Exam: Well-developed, well-nourished middle-aged male in no acute distress. Vital signs: See above. Neck: No JVD, no bruits. Lungs: Clear to auscultation bilaterally. Heart: S1, S2 with no murmur, gallop, or rub appreciated. PMI fifth ICS MCL. Abdomen: Soft, nontender, positive bowel sounds. Extremities: No edema. Pulses: Symmetrical and intact. Current Medications: Current Medications Sig/Usha Start time Last Medication Dose Route Stop Time Status Admin Acetaminophen 650 MG Q6P PRN 01/22 1715 AC PO Aspirin 0 .STK-MED ONE 01/22 1407 DC PO Aspirin 0 .STK-MED ONE 01/22 1352 DC PO Aspirin 324 MG ONCE ONE 01/22 1345 DC 01/22 PO 01/22 1346 1357 Atorvastatin Calcium 10 MG 01/23 1000 AC 01/23 PO 1002 Cholecalciferol 2,000 IU DAILY 01/23 1000 AC 01/23 PO 1003 Clopidogrel Bisulfate 75 MG DAILY 01/23 1000 AC 01/23 PO 1003 Clopidogrel Bisulfate 600 MG ONCE ONE 01/22 1630 DC 01/22 PO 01/22 1631 1721 Cyanocobalamin 500 MCG DAILY 01/23 1000 AC 01/23 PO 1003 Heparin Sodium 5,000 UNIT .STK-MED ONE 01/22 2225 DC (Porcine) IV 01/22 2226 Heparin Sodium 2,292 UNIT ONCE ONE 01/22 2200 DC 01/22 (Porcine) IV 01/22 2201 2230 Heparin Sodium 0 .STK-MED ONE 01/22 1419 DC (Porcine) .ROUTE Heparin Sodium 4,000 UNIT ONCE ONE 01/22 1400 DC 01/22 (Porcine) IV 01/22 1401 1433 Heparin Sodium 25,000 UNIT Q24H 01/22 1400 AC 01/22 (Porcine) IV 1432 Sodium Chloride 500 ML Levothyroxine Sodium 0.05 MG DAILY AC 01/23 0700 AC 01/23 PO 0641 Losartan Potassium 50 MG BID 01/22 2200 AC 01/23 PO 1002 Metoprolol Succinate 25 MG 1200 01/23 1200 AC PO Metoprolol Succinate 25 MG DAILY 01/23 1000 DC PO Multivitamins 1 TAB DAILY 01/23 1000 AC 01/23 Therapeutic PO 1003 Oxycodone/ 1 TAB Q6P PRN 01/22 1715 AC Acetaminophen PO Oxycodone/ 2 TAB Q6P PRN 01/22 1715 AC Acetaminophen PO Patient Medication 1 UNIT ONE NR 01/22 1830 [facility] ED 01/22 1900 Patient Medication 1 UNIT ONE NR 01/22 1830 [facility] ED 01/22 1900 Patient Medication 1 UNIT ONE NR 01/22 1815 [facility] ED 01/22 1830 Patient Medication 1 UNIT ONE NR 01/22 1815 [facility] ED 01/22 1830 Results Last 48 Hrs of Labs/Mics: Laboratory Tests 01/23/17 0830: Troponin I 1.12 *H 01/23/17 0400: Anion Gap 12, Estimated GFR > 60, BUN/Creatinine Ratio 23.0, Phosphorus 4.6 H, Magnesium 2.3, Total Bilirubin 1.0, Direct Bilirubin 0.2, AST 34, ALT 59, Alkaline Phosphatase 81, Total Protein 6.6, Albumin 4.4, Triglycerides 202 H, Cholesterol 195, LDL Cholesterol, Calc 113, HDL Cholesterol 42, Cholesterol/HDL Ratio 5 H, APTT 92 H, CBC w Diff NO MAN DIFF REQ, RBC 5.29, MCV 90.7, MCH 30.9 , RDW 13.8, MPV 9.5, Gran % 62.6, Lymphocytes % 28.0, Monocytes % 6.9, Eosinophils % 2.2, Basophils % 0.3, Absolute Granulocytes 5.2, Absolute Lymphocytes 2.3, Absolute Monocytes 0.6, Absolute Eosinophils 0.2, Absolute Basophils 0, PUBS MCHC 34.0 01/23/17 0200: Troponin I 1.60 *H 01/22/17 2020: Troponin I 1.31 *H, APTT 57 H 01/22/17 1759: Urine Color YEL, Urine Clarity CLEAR, Urine pH 6.0, Ur Specific [place] 1.015, Urine Protein NEG, Urine Ketones TRACE H, Urine Nitrite NEG, Urine Bilirubin NEG, Urine Urobilinogen 0.2, Ur Leukocyte Esterase NEG, Ur Microscopic EXAM NOT REQUIRED, Urine Hemoglobin NEG, Urine Glucose NEG 01/22/17 1251: Anion Gap 14, Estimated GFR > 60, BUN/Creatinine Ratio 26.0 H, Glucose 146 H, Hemoglobin A1c 5.8, Calcium 10.2, Phosphorus 3.8, Magnesium 2.1, Total Bilirubin 1.0, AST 41, ALT 68, Alkaline Phosphatase 86, Troponin I 0.99 *H, Total Protein 7.7, Albumin 4.9, Globulin 2.8, Albumin/Globulin Ratio 1.8, Lipase 78, TSH 1.790 , Free T4 1.45, PT 11.3, INR 1.08, APTT 30, D-Dimer < 200, CBC w Diff NO MAN DIFF REQ, RBC 5.51, MCV 90.0, MCH 30.6, RDW 13.5, MPV 9.9, Gran % 68.5, Lymphocytes % 23.3, Monocytes % 6.2, Eosinophils % 1.8, Basophils % 0.2, Absolute Granulocytes 5.7, Absolute Lymphocytes 2.0, Absolute Monocytes 0.5, Absolute Eosinophils 0.2, Absolute Basophils 0, PUBS MCHC 34.0 Assessment/Plan Assessment/Plan Mr. Olvera is a 56-y-o male with a hx of HTN, HLD, & strong FH for CAD who presented with recurrent exertional episodes of right CP w/ radiation down his R arm, a modest troponin I elevation, and relatively minor electrocardiographic abnormalities. He has remained chest discomfort free on his present medical regimen. Fortunately, his troponins are trending down after a peak level of 1.6 ng/ml and his electrocardiograms have revealed only relatively mild changes. Management options were discussed in detail with the patient and his . Given the unstable nature of his presentation, cardiac catheterization with an eye towards revascularization was recommended. Cardiac catheterization and percutaneous coronary intervention was discussed in detail and after answering several questions the patient would like to proceed with this option. His attending taxation economist's (Tahir Phelps M.D.) office was contacted, but unfortunately Dr. Phelps is on holiday. Mr. Olvera was given the option of being transferred to Dr. Phelps's coverage or having the procedure(s) performed by our interventionalist (Emmanuel Blake M.D., PhD) and the patient opted for the latter. Recommendations: * Plan for transfer to [facility] for cardiac cath and possible PCI with Emmanuel Blake M.D., PhD as the accepting physician. * Continue presents cardiac regimen and maintain nothing by mouth status. Continue telemetry? Yes
--- NOTE | 2017-01-23 11:33 | PN- Student ---
Subjective Subjective: Upon presentation today patient was slightly anxious about his management since he has a strong FHx of cardiac issues. He did not describe any pain or difficulty breathing and seemd comfortable. He reported no pain or other issues overnight but was concerned about his troponins. Objective Objective: He seems to be a healthy man who is not overweight and reasonably active. He tends to enjoy being active outside with hiking which normally causes no symptoms. He was alert and oriented and was not showing any signs of acute distress. Telemetry: Sinus rhythm 70-80bpm, no events Labs: H/H- 16.3/48, PTT-92, TGs- 292, Chol/HDL- 5, BUN-23, Troponin-1.12 (peak of 1.6), 24 hr fluid- -84, K+- 4.3, INR- 1.08 EKG: nml Sinus rhythm w/borderline Left axis deviation PE: Skin- no swelling or echimosis noted HEENT- no swelling, pain or echimosis noted, trachea midline, no lymphadenopathy CV- S1 and S2 heard, no murmurs, skips or gallops noted Lungs- vesicular breath sounds throughout all lung jama Abd- bowel sounds present, no pain to palpation Ext- no pain, swelling, or echimosis present. Chris's negative. Results Results: Vital Signs Date Time Temp Pulse Resp B/P Pulse O2 O2 Flow FiO2 Ox Delivery Rate 01/23 1002 88 110/70 01/23 0800 98.6 88 20 100/60 97 Room Air 01/23 0011 98.9 77 20 110/65 97 Room Air 01/22 2125 82 122/88 01/22 1900 98.3 101 20 118/78 96 Room Air 01/22 1850 97.0 92 20 127/78 96 Room Air 01/22 1710 98.9 89 18 132/89 98 Room Air 01/22 1530 98.4 94 20 156/96 99 Room Air 01/22 1401 86 20 145/96 100 Room Air 01/22 1359 100 Room Air Room Air 01/22 1208 98.3 96 18 129/87 99 Room Air Laboratory Tests 01/23/17 0830: Troponin I 1.12 *H 01/23/17 0400: Anion Gap 12, Estimated GFR > 60, BUN/Creatinine Ratio 23.0, Phosphorus 4.6 H, Magnesium 2.3, Total Bilirubin 1.0, Direct Bilirubin 0.2, AST 34, ALT 59, Alkaline Phosphatase 81, Total Protein 6.6, Albumin 4.4, Triglycerides 202 H, Cholesterol 195, LDL Cholesterol, Calc 113, HDL Cholesterol 42, Cholesterol/HDL Ratio 5 H, APTT 92 H, CBC w Diff NO MAN DIFF REQ, RBC 5.29, MCV 90.7, MCH 30.9 , RDW 13.8, MPV 9.5, Gran % 62.6, Lymphocytes % 28.0, Monocytes % 6.9, Eosinophils % 2.2, Basophils % 0.3, Absolute Granulocytes 5.2, Absolute Lymphocytes 2.3, Absolute Monocytes 0.6, Absolute Eosinophils 0.2, Absolute Basophils 0, PUBS MCHC 34.0 01/23/17 0200: Troponin I 1.60 *H 01/22/17 2020: Troponin I 1.31 *H, APTT 57 H 01/22/17 1759: Urine Color YEL, Urine Clarity CLEAR, Urine pH 6.0, Ur Specific [place] 1.015, Urine Protein NEG, Urine Ketones TRACE H, Urine Nitrite NEG, Urine Bilirubin NEG, Urine Urobilinogen 0.2, Ur Leukocyte Esterase NEG, Ur Microscopic EXAM NOT REQUIRED, Urine Hemoglobin NEG, Urine Glucose NEG 01/22/17 1251: Anion Gap 14, Estimated GFR > 60, BUN/Creatinine Ratio 26.0 H, Glucose 146 H, Hemoglobin A1c 5.8, Calcium 10.2, Phosphorus 3.8, Magnesium 2.1, Total Bilirubin 1.0, AST 41, ALT 68, Alkaline Phosphatase 86, Troponin I 0.99 *H, Total Protein 7.7, Albumin 4.9, Globulin 2.8, Albumin/Globulin Ratio 1.8, Lipase 78, TSH 1.790 , Free T4 1.45, PT 11.3, INR 1.08, APTT 30, D-Dimer < 200, CBC w Diff NO MAN DIFF REQ, RBC 5.51, MCV 90.0, MCH 30.6, RDW 13.5, MPV 9.9, Gran % 68.5, Lymphocytes % 23.3, Monocytes % 6.2, Eosinophils % 1.8, Basophils % 0.2, Absolute Granulocytes 5.7, Absolute Lymphocytes 2.0, Absolute Monocytes 0.5, Absolute Eosinophils 0.2, Absolute Basophils 0, PUBS MCHC 34.0 Assessment/Plan Assessment: Patient appears to be anxious regarding his status, troponins, and treatment plan. Plan was later discussed with patient as they tried to contact his ict project manager Dr. Phelps, who is on vacation this week. Problem List: 1. Angina 2. HTN Plan: Treatment plan as decided on by patient and attending physician is to transfer him to our stained glass joiner to examine and perform cardiac catheter. Plan to monitor patients EKG and Troponins until transfer. Problem list: 1. Angina- will be transferred for cardiac cath. 2. HTN- patient stated that long standing HTN hasnt been well controlled. Reassess medications and dosage to help better control BP.
[2017-01-23] MEDS ORDERED: HEPARIN-1/25000 UNIT IV (11:44)
[2017-01-23] MEDS ORDERED: ATORVASTATIN CA80 M1 PO (11:46)
--- NOTE | 2017-01-23 11:47 | Discharge Summary ---
Visit Information Visit Dates Admission Date: 01/22/17 Discharge Date: 01/23/17 Hospital Course Course Attending Physician: Dr. Medina Primary Care Physician: MAGY ESPANA,MALCOLM Avelar Other Care Providers: Dr. Piedra Consulting Request: Consulting Specialty: Cardiology Hospital Course: Mr. Olvera is a 56 year male with a PMH of hypertension, dyslipidemia, and strong family history for premature atherosclerotic disease and a strong family hx of CAD (diabetic mother had an ND at age 55 years, subsequent 2 CABGs, SCD at 79 years) who presented with recurrent episodes of exertional right chest discomfort with, at times, radiation down his right arm. Upon admission his troponin I was found t obe elevated at 0.99 and peaked at 1.6 [trended down to 1.12], with relatively minor electrocardiographic abnormalities ((01/22/2017) sinus rhythm, possible left atrial abnormality, and minor nondiagnostic T-wave abnormalities. No ST-T elevation noted). VS on admission: BP 129/87, HR 96, RR 18, SPO2 99% on RA, T 98.3 Pertinent labs: WBC 8.6, H&H 16.9/49.6, platelets 201, potassium 5.0, BUN/CR 26/ 1.0 glucose 146 INR: 1.08 D-dimer: Less than 200 He was admitted to the telemetry service, started on intravenous heparin, as well as loaded with 600 mg of clopidogrel [followed by 75 mg daily], and given aspirin. His home medications statin, angiotensin receptor armani, beta armani and levothyroxine were continued. Throughout his admission, the patient did not have any chest pain however given his comorbidities and strong family history of coronary disease, it was decided that coronary is significant enough to warrant cardiac catheterization sooner rather than later and [facility] under the service of Emmanuel Blake MD perform cardiac catheterization and possible percutaneous intervention if he has significant coronary stenosis. Allergies: Coded Allergies: NO KNOWN ALLERGIES (07/29/16) Disposition Summary Disposition Principal Diagnosis: NTEMI Additional Diagnosis: HTN, HLD Discharge Disposition: other general hospital Discharge Instructions General Discharge Information Code Status: Full Code Patient's Diet: NPO Patient's Activity: As tolerated Follow-Up Instructions/Appts: Please follow-up with Dr. Phelps after your cardiac catheterization. Please also follow up within 1-2 weeks with your primary care physician. Please take your medications as prescribed. Medications at Discharge Discharge Medications: Continue taking these medications: Levothyroxine Sodium (Levothyroxine Sodium) 50 MCG TABLET 1 Tablet ORAL DAILY Qty = 30 Comments: Last Taken: 01/23/17 Time: 6:30 AM Losartan Potassium (Losartan Potassium) 50 MG TABLET 1 Tablet ORAL TWICE DAILY Qty = 60 Comments: Last Taken: 01/23/17 Time: 10 AM Cholecalciferol (Vitamin D3) (Vitamin D) 2,000 UNIT TABLET 1 Tablet ORAL DAILY Comments: Last Taken: 01/23/17 Time: 10 AM Cyanocobalamin (Vitamin B-12) (Vitamin B-12) 500 MCG TAB.SUBL 1 Tablet ORAL DAILY Comments: Last Taken: 01/23/17 Time: 10 AM Multivitamin (Multi-Day Vitamins) 1 EACH TABLET 1 Tablet ORAL DAILY Comments: Last Taken: 01/23/17 Time: 10 AM Lorazepam (Ativan) 0.5 MG TABLET 1 Tablet ORAL 2 x Daily as needed as needed for anxiety Qty = 20 Comments: NOT GIVEN IN HOSPITAL Metoprolol Succinate (Metoprolol Succinate) 25 MG TAB 1 Tablet ORAL DAILY Qty = 30 Comments: Last Taken: 01/23/17 Time: 12 NOON Atorvastatin Calcium (Atorvastatin Calcium) 80 MG TABLET 1 Tablet ORAL DAILY Qty = 30 Comments: Last Taken: 01/23/17 Time: 10 AM This prescription has been renewed Start taking the following new medications: Clopidogrel Bisulfate (Plavix) 75 MG TABLET 75 Milligram ORAL DAILY as needed for anti-platelet Qty = 30 No Refills Comments: Last Taken: 01/23/17 Time: 10 AM Heparin Sod,Pork in 0.45% NaCl (Heparin-1/2NS 25,000 Units/250) 25,000 UNIT/250 ML (100 UNIT/ML) IV.SOLN 25,000 Units INTRAVEN SEE INSTRUCTIONS Days = 1 No Refills Instructions: please titrate according to ACS protocol Comments: HEPARIN GTT AT 18.3 ML/HR Copies To: SIMÓN ESPANA,CROW Matthew; MAGY ESPANA,MALCOLM Avelar Attending MD Review Statement Documenting Attending: OPAL ESPANA,HAIM Matthew Other Findings: Patient seen and examined at bedside. Agree with the above discharge plan. Patient being transferred out to higher level of care for cardiac catheterization. Please see my brief attending note for more details.
[2017-01-23] MEDS ORDERED: PLAVIX75 M1 PO (11:48)
[2017-01-23 12:02] VITALS: BP 110/72
--- NOTE | 2017-01-23 17:04 | PN- Att Addend ---
Attending MD Review Statement Attending Statement Attending MD Statement: examined this patient, discuss w/resident/PA/HISTOLOGICAL ILLUSTRATOR, agreed w/resident/PA/HISTOLOGICAL ILLUSTRATOR, discussed with family, reviewed EMR data (avail), discussed w/ nursing, discussed w/case mgmt Attending Assessment/Plan: Laboratory Tests 01/23/17 0830: Troponin I 1.12 *H 01/23/17 0400: Anion Gap 12, Estimated GFR > 60, BUN/Creatinine Ratio 23.0, Phosphorus 4.6 H, Magnesium 2.3, Total Bilirubin 1.0, Direct Bilirubin 0.2, AST 34, ALT 59, Alkaline Phosphatase 81, Total Protein 6.6, Albumin 4.4, Triglycerides 202 H, Cholesterol 195, LDL Cholesterol, Calc 113, HDL Cholesterol 42, Cholesterol/HDL Ratio 5 H, APTT 92 H, CBC w Diff NO MAN DIFF REQ, RBC 5.29, MCV 90.7, MCH 30.9 , RDW 13.8, MPV 9.5, Gran % 62.6, Lymphocytes % 28.0, Monocytes % 6.9, Eosinophils % 2.2, Basophils % 0.3, Absolute Granulocytes 5.2, Absolute Lymphocytes 2.3, Absolute Monocytes 0.6, Absolute Eosinophils 0.2, Absolute Basophils 0, PUBS MCHC 34.0 01/23/17 0200: Troponin I 1.60 *H 01/22/17 2020: Troponin I 1.31 *H, APTT 57 H 01/22/17 1759: Urine Color YEL, Urine Clarity CLEAR, Urine pH 6.0, Ur Specific [place] 1.015, Urine Protein NEG, Urine Ketones TRACE H, Urine Nitrite NEG, Urine Bilirubin NEG, Urine Urobilinogen 0.2, Ur Leukocyte Esterase NEG, Ur Microscopic EXAM NOT REQUIRED, Urine Hemoglobin NEG, Urine Glucose NEG Vital Signs Date Time Temp Pulse Resp B/P Pulse O2 O2 Flow FiO2 Ox Delivery Rate 01/23 1202 88 110/72 01/23 1002 88 110/70 01/23 0800 98.6 88 20 100/60 97 Room Air 01/23 0011 98.9 77 20 110/65 97 Room Air 01/22 2125 82 122/88 01/22 1900 98.3 101 20 118/78 96 Room Air 01/22 1850 97.0 92 20 127/78 96 Room Air 01/22 1710 98.9 89 18 132/89 98 Room Air Patient seen and examined at bedside. Discussed with patient the care plan. His last troponin has trended down to 1.12 from 1.6.. Patient admitted with recurrent right-sided chest pain and found to have elevated troponins. Patient has strong family history of coronary artery disease. Patient seen by cardiology and they recommended transfer of the patient to outside facility for cardiac catheterization. Patient is being transferred to [facility] for further management. Please see the discharge summary for more details.
== END 2017-01-23 12:40 | disposition short-term general hospital (02) | DRG 282 ==
LOC: ENRESERVTM → ENRESERVDT → ERH 11:48 → 1NO 16:06 → ENPENDDIS 16:06 → ERHI 16:06 → 1NO 19:28
PROVIDERS: Internal Medicine; Physician Assistant; ADMIT Internal Medicine
DX: I21.4 Non-ST elevation (NSTEMI) myocardial infarction (principal); I10 Essential (primary) hypertension; E78.5 Hyperlipidemia, unspecified; E03.9 Hypothyroidism, unspecified; F41.9 Anxiety disorder, unspecified; Z82.49 Family history of ischemic heart disease and other diseases of the circulatory system
CPT/HCPCS: 1NP; 81003; 82436; 93005; 93010; 96374; 99291; J1644; J3490

== ENCOUNTER 2017-03-05 12:49 | Emergency (ER) | payer OTHER ==
[~2017-03-05 12:49] MED LIST changes: +HEPARIN-1/25000 UNIT IV; +METOPROLOL SUCC25 M1 PO; +PLAVIX75 M1 PO
--- NOTE | 2017-03-05 13:15 | ED GI/GU/ABDOMINAL COMPLAINT ---
History of Present Illness General Chief Complaint: Abdominal Pain/Flank Pain Stated Complaint: RIGHT FLANK PAIN Source: patient, family, old records Exam Limitations: no limitations Vital Signs & Intake/Output Vital Signs & Intake/Output Vital Signs Date Time Temp Pulse Resp B/P B/P Pulse O2 O2 Flow FiO2 Mean Ox Delivery Rate 03/05 1447 98.6 70 17 148/82 99 Room Air 03/05 1256 98.2 71 16 151/86 97 Room Air Allergies Coded Allergies: NO KNOWN ALLERGIES (07/29/16) Reconcile Medications Atorvastatin Calcium 80 MG TABLET 1 TAB PO DAILY Cholesterol (Reported) Atorvastatin Calcium 80 MG TABLET 1 TAB PO DAILY Cholesterol Cholecalciferol (Vitamin D3) (Vitamin D) 2,000 UNIT TABLET 1 TAB PO DAILY SUPPLEMENT (Reported) Clopidogrel Bisulfate (Plavix) 75 MG TABLET 75 MG PO DAILY PRN anti-platelet Cyanocobalamin (Vitamin B-12) (Vitamin B-12) 500 MCG TAB.SUBL 1 TAB PO DAILY SUPPLEMENT (Reported) Heparin Sod,Pork in 0.45% NaCl (Heparin-1/2NS 25,000 Units/250) 25,000 UNIT/250 ML (100 UNIT/ML) IV.SOLN 25,000 UNITS IV SEE ADMIN CRITERIA Heparin please titrate according to ACS protocol Levothyroxine Sodium 50 MCG TABLET 1 TAB PO DAILY THYROID (Reported) Lorazepam (Ativan) 0.5 MG TABLET 1 TAB PO BIDP PRN anxiety Losartan Potassium 50 MG TABLET 1 TAB PO BID BP (Reported) Metoprolol Succinate 25 MG TAB 1 TAB PO DAILY BLOOD PRESSURE (Reported) Multivitamin (Multi-Day Vitamins) 1 EACH TABLET 1 TAB PO DAILY SUPPLEMENT ( Reported) Triage Note: PT TO ED WITH RT FLANK/BACK PAIN THAT STARTED SMALLER A FEW WEEKS AGO AND HAS BEEN GETTING WORSE. REPORTS HIS URINE APPEARS MORE FROTHY. DENIES ANY OTHER URINARY S.S. HAD A PA LAST MONTH, WAS HERE AND SENT TO [facility] FOR STENT PLACEMENT. Triage Nurses Notes Reviewed? yes HPI: Patient presents to the emergency room with right flank pain that started on Monday. The pain is constant. The pain increased with movement. Occasionally the pain radiates to the right upper quadrant. There is no nausea or vomiting. The pain is sharp and stabbing in nature. Patient does not notice any hematuria. The pain is 8 out of 10. There is no weakness or numbness. Patient is concerned about his kidneys since he is on many new medications. Patient had a heart attack back in January and had a stent placed. Patient states she was discharged on a large dose of a statin but he developed diffuse muscle aches so the statin was stopped but he recently restarted it at a much lower dose. Patient denies any fevers or chills. Past History Travel History Traveled to [place] past 21 day No Medical History Any Pertinent Medical History? 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 No Review of Systems Review of Systems Constitutional: Reports: no symptoms. EENTM: Reports: no symptoms. Respiratory: Reports: no symptoms. Cardiovascular: Reports: no symptoms. GI: Reports: no symptoms. Genitourinary: Reports: no symptoms. Musculoskeletal: Reports: see HPI, back pain. Skin: Reports: no symptoms. Neurological/Psychological: Reports: no symptoms. Hematologic/Endocrine: Reports: no symptoms. Immunologic/Allergic: Reports: no symptoms. All Other Systems: Reviewed and Negative Physical Exam Physical Exam General Appearance: well developed/nourished, alert, awake, anxious, mild distress Head: atraumatic, normal appearance Eyes: Bilateral: PERRL, EOMI. Ears, Nose, Throat, Mouth: hearing grossly normal, moist mucous membrane Neck: normal inspection, supple, full range of motion Respiratory: normal breath sounds, chest non-tender, no respiratory distress, lungs clear Cardiovascular: regular rate/rhythm, normal peripheral pulses Gastrointestinal: normal bowel sounds, soft, non-tender, no organomegaly Back: normal inspection, normal range of motion, CVA tenderness (R) Extremities: normal range of motion Neurologic/Psych: no motor/sensory deficits, awake, alert, oriented x 3, normal gait, normal mood/affect Skin: intact, normal color, warm/dry Core Measures ACS in differential dx? No Severe Sepsis Present: No Septic Shock Present: No Progress Differential Diagnosis: UTI/pyelo, MYOFASICIAL STRAIN Plan of Care: Orders Procedure Date/time Status URINALYSIS 03/05 1315 Complete COMPREHENSIVE METABOLIC PANEL 03/05 1315 Complete CBC WITHOUT DIFFERENTIAL 03/05 1315 Complete Laboratory Tests 03/05/17 1350: Anion Gap 13, Estimated GFR > 60, BUN/Creatinine Ratio 19.0, Glucose 136 H, Calcium 9.8, Total Bilirubin 1.4 H, AST 43, ALT 72, Alkaline Phosphatase 76, Total Protein 7.2, Albumin 5.0, Globulin 2.2, Albumin/Globulin Ratio 2.3 H, CBC w Diff NO MAN DIFF REQ, RBC 4.86, MCV 90.0, MCH 31.1 H, RDW 13.4, MPV 10.2, Gran % 74.0, Lymphocytes % 17.7 L, Monocytes % 6.8, Eosinophils % 1.2, Basophils % 0.3, Absolute Granulocytes 3.9, Absolute Lymphocytes 0.9 L, Absolute Monocytes 0.4, Absolute Eosinophils 0.1, Absolute Basophils 0, PUBS MCHC 34.6, Urine Color YEL, Urine Clarity CLEAR, Urine pH 6.0, Ur Specific [place] <= 1.005, Urine Protein NEG, Urine Ketones TRACE H, Urine Nitrite NEG, Urine Bilirubin NEG, Urine Urobilinogen 0.2, Ur Leukocyte Esterase NEG, Ur Microscopic EXAM NOT REQUIRED, Urine Hemoglobin NEG, Urine Glucose NEG Diagnostic Imaging: Viewed by Me: CT Scan. Discussed w/RAD: CT Scan. Radiology Impression: PATIENT: ARTURO MENDOZA PRESENT AGE: 56 PATIENT ACCOUNT NO: [id number] : 58 LOCATION: [facility] ORDERING PHYSICIAN: JAYSHREE CARRILLO MD SERVICE DATE: 03/05/17 EXAM TYPE: CAT - CT ABD & PELVIS W/O IV CONTRAS EXAMINATION: CT ABDOMEN AND PELVIS WITHOUT CONTRAST CLINICAL INFORMATION: Right flank pain. COMPARISON: None TECHNIQUE: Multidetector volumetric imaging was performed from the superior aspect of the liver through the pubic symphysis. Sagittal and coronal reformatted images were obtained on the technologist's workstation. DLP: 268.98 mGy-cm. FINDINGS: FACILITY SPECIALIST: Moderate to significant amount of residual barium is noted in the distal transverse colon, descending colon and rectosigmoid colon from previous upper GI and small bowel follow-through examination of 02/24/2017. Streaking artifact from this residual barium limits the evaluation in the left hemiabdomen and pelvis. LUNG BASES: The visualized lung bases are unremarkable. LIVER, GALLBLADDER, AND BILIARY TREE: The liver is normal in size, shape, and attenuation. No focal hepatic lesion or biliary ductal dilatation is present. The gallbladder is unremarkable with no evidence of radiopaque gallstones, gallbladder wall thickening, or obvious pericholecystic inflammatory changes. PANCREAS: Unremarkable. SPLEEN: Unremarkable. ADRENAL GLANDS: Unremarkable. KIDNEYS AND URETERS: The kidneys are normal in size, shape, and attenuation. No hydronephrosis, hydroureter, or calculi seen. No perinephric stranding. BLADDER: The bladder is adequately distended. The evaluation of the bladder is somewhat limited due to streaking artifacts from residual barium in the colon however no definite radiopaque calculi or wall thickening is noted. GASTROINTESTINAL TRACT: Moderate to significant amount of residual barium is noted in the rectosigmoid colon, descending colon and transverse colon. No evidence of pericolonic fat stranding. Contrast is noted in the appendix and is unremarkable. The stomach is partially decompressed and unremarkable. Small bowel loops are not dilated. PERITONEAL CAVITY: No evidence of free intraperitoneal air or fluid. ABDOMINAL WALL: No significant hernia is appreciated. LYMPH NODES: No evidence of pathologically enlarged lymph nodes. VASCULAR: There is mild to moderate calcific atherosclerosis of the distal aorta and iliac arteries without aneurysmal dilatation. PELVIC VISCERA: The prostate is mildly enlarged measuring 5 cm in transverse dimensions. Seminal vesicles are unremarkable. OSSEOUS STRUCTURES: 2 subcentimeter sclerotic foci are noted in the L3 body, one is along the superior endplate and second one is in the posterior body on the right. There is moderate narrowing of the L3-L4 and L4-L5 disc spaces. No acute osseous abnormality. IMPRESSION: 1. No evidence of radiopaque urinary tract calculi or obstructive uropathy. 2. No acute abnormality. 3. Moderate to significant barium retention in the transverse colon, left-sided colon and rectosigmoid colon from previous upper GI and small bowel follow-through examination of 02/24/2017. The findings may raise a possibility of colonic dysmotility/hypomotility. Recommend clinical correlation. 4. Nonspecific 2 small subcentimeter sclerotic foci in the body of the L3, one along the superior endplate is probably seen on the previous lumbar spine x-ray of 2012. DICTATED BY: KARSON HE MD DATE/TIME DICTATED:03/05/171338 PORTFOLIO SPECIALIST:FARAZ DATE/TIME TRANSCRIBED:03/05/171338 CONFIDENTIAL, DO NOT COPY WITHOUT APPROPRIATE AUTHORIZATION. <Electronically signed in Other Vendor System> SIGNED BY: KARSON HE MD 03/05/17 1446 Initial ED EKG: none Departure Departure Disposition: HOME OR SELF CARE Condition: Stable Clinical Impression Primary Impression: Back pain Referrals: MAGY ESPANA,MALCOLM Avelar (PCP/Family) Additional Instructions: USE MOIST HEAT RETURN FOR ANY CONCERNS Departure Forms: Customer Survey General Discharge Information
[2017-03-05 14:13] LABS: ABSOLUTE BASOPHIL COUNT 0 /CUMM (0.0-0.2); ABSOLUTE EOSINOPHIL COUNT 0.1 /CUMM (0.0-0.7); ABSOLUTE GRANULOCYTE CT 3.9 /CUMM (1.4-6.5); ABSOLUTE LYMPH COUNT 0.9 /CUMM (1.2-3.4); ABSOLUTE MONOCYTE COUNT 0.4 /CUMM (0.10-0.60); BASOPHIL % 0.3 % (0.0-2.0); EOSINOPHIL % 1.2 % (0-5); HEMATOCRIT 43.7 % (42-52); MEAN CORPUSCULAR HGB 31.1 PG (27.0-31.0); MEAN CORPUSCULAR HGB CONC 34.6 G/DL (33.0-37.0); MEAN PLATELET VOLUME 10.2 FL (7.4-10.4); PLATELET COUNT 187 /CUMM (130-400); RBC DISTRIBUTION WIDTH 13.4 % (11.5-14.5); RED BLOOD CELL CT 4.86 /CUMM (4.70-6.10); WHITE BLOOD CELL COUNT 5.3 /CUMM (4.8-10.8)
--- NOTE | 2017-03-05 14:46 | CT SCAN REPORT ---
EXAMINATION: CT ABDOMEN AND PELVIS WITHOUT CONTRAST CLINICAL INFORMATION: Right flank pain. COMPARISON: None TECHNIQUE: Multidetector volumetric imaging was performed from the superior aspect of the liver through the pubic symphysis. Sagittal and coronal reformatted images were obtained on the technologist's workstation. DLP: 268.98 mGy-cm. FINDINGS: DRILL RUNNER: Moderate to significant amount of residual barium is noted in the distal transverse colon, descending colon and rectosigmoid colon from previous upper GI and small bowel follow-through examination of 02/24/2017. Streaking artifact from this residual barium limits the evaluation in the left hemiabdomen and pelvis. LUNG BASES: The visualized lung bases are unremarkable. LIVER, GALLBLADDER, AND BILIARY TREE: The liver is normal in size, shape, and attenuation. No focal hepatic lesion or biliary ductal dilatation is present. The gallbladder is unremarkable with no evidence of radiopaque gallstones, gallbladder wall thickening, or obvious pericholecystic inflammatory changes. PANCREAS: Unremarkable. SPLEEN: Unremarkable. ADRENAL GLANDS: Unremarkable. KIDNEYS AND URETERS: The kidneys are normal in size, shape, and attenuation. No hydronephrosis, hydroureter, or calculi seen. No perinephric stranding. BLADDER: The bladder is adequately distended. The evaluation of the bladder is somewhat limited due to streaking artifacts from residual barium in the colon however no definite radiopaque calculi or wall thickening is noted. GASTROINTESTINAL TRACT: Moderate to significant amount of residual barium is noted in the rectosigmoid colon, descending colon and transverse colon. No evidence of pericolonic fat stranding. Contrast is noted in the appendix and is unremarkable. The stomach is partially decompressed and unremarkable. Small bowel loops are not dilated. PERITONEAL CAVITY: No evidence of free intraperitoneal air or fluid. ABDOMINAL WALL: No significant hernia is appreciated. LYMPH NODES: No evidence of pathologically enlarged lymph nodes. VASCULAR: There is mild to moderate calcific atherosclerosis of the distal aorta and iliac arteries without aneurysmal dilatation. PELVIC VISCERA: The prostate is mildly enlarged measuring 5 cm in transverse dimensions. Seminal vesicles are unremarkable. OSSEOUS STRUCTURES: 2 subcentimeter sclerotic foci are noted in the L3 body, one is along the superior endplate and second one is in the posterior body on the right. There is moderate narrowing of the L3-L4 and L4-L5 disc spaces. No acute osseous abnormality. IMPRESSION: 1. No evidence of radiopaque urinary tract calculi or obstructive uropathy. 2. No acute abnormality. 3. Moderate to significant barium retention in the transverse colon, left-sided colon and rectosigmoid colon from previous upper GI and small bowel follow-through examination of 02/24/2017. The findings may raise a possibility of colonic dysmotility/hypomotility. Recommend clinical correlation. 4. Nonspecific 2 small subcentimeter sclerotic foci in the body of the L3, one along the superior endplate is probably seen on the previous lumbar spine x-ray of 2011.
[2017-03-05 15:36] VITALS: BP 146/80
== END 2017-03-05 15:40 ==
LOC: ERH 12:49
PROVIDERS: Emergency Medicine
DX: R10.31 Right lower quadrant pain (principal)
CPT/HCPCS: 74176; 81003

== ENCOUNTER 2017-05-04 14:03 | Emergency (ER) | payer OTHER ==
[~2017-05-04] VITALS: Ht 172.7 cm; Wt 68.9 kg
--- NOTE | 2017-05-04 15:26 | ED UPPER/LOWER EXTREMITY COMPL ---
History of Present Illness General Chief Complaint: General Adult Stated Complaint: TINGLING IN L ARM/HAND Source: patient, old records Exam Limitations: no limitations Vital Signs & Intake/Output Vital Signs & Intake/Output Vital Signs Date Time Temp Pulse Resp B/P B/P Pulse O2 O2 Flow FiO2 Mean Ox Delivery Rate 05/04 1729 72 18 121/72 100 Room Air 05/04 1407 96.7 64 16 137/88 97 Room Air Allergies Coded Allergies: NO KNOWN ALLERGIES (07/29/16) Reconcile Medications Aspirin (Lo-Dose Aspirin EC) 81 MG TABLET.DR 1 TAB PO DAILY HEART/BLOOD ( Reported) Atorvastatin Calcium 10 MG TABLET 1 TAB PO Monday CHOLESTEROL ( Reported) Cholecalciferol (Vitamin D3) (Vitamin D) 2,000 UNIT TABLET 1 TAB PO DAILY SUPPLEMENT (Reported) Clopidogrel Bisulfate (Plavix) 75 MG TABLET 1 TAB PO DAILY BLOOD THINNER ( Reported) Cyanocobalamin (Vitamin B-12) (Vitamin B-12) 500 MCG TAB.SUBL 1 TAB PO DAILY SUPPLEMENT (Reported) Levothyroxine Sodium 50 MCG TABLET 1 TAB PO DAILY THYROID (Reported) Lorazepam (Ativan) 0.5 MG TABLET 1 TAB PO BIDP PRN anxiety Losartan Potassium 50 MG TABLET 1 TAB PO BID BP (Reported) Metoprolol Succinate 25 MG TAB 1 TAB PO DAILY BLOOD PRESSURE (Reported) Multivitamin (Multi-Day Vitamins) 1 EACH TABLET 1 TAB PO DAILY SUPPLEMENT ( Reported) Triage Note: 56 Y/0 MALE C/O L ARM "TINGLING" SINCE MIDDLE OF THE NIGHT. STATES HE HAD A CARDIAC STENT PUT IN JANUARY (DR DUONG / DR GR). TAKES PLAVIX AND ASA DAILY. ON MONDAY, FORGET TO TAKE PLAVIX IN MORNING AND WENT 10 HOURS WITHOUT MED UNTIL HE REMEMBERED AND TOOK DAILY DOSE. THAT NIGHT, WOKE FROM SLEEP AND THEN NOTICED "TINGLING" TO L ARM. SYMPTOMS CONTINUE TODAY SO PT STATES "ITS IN MY HEAD BUT IM WORRIED I HAVE A BLOOD CLOT NOW OR SOMETHING". DENIES C/P. DENIES SOB. DENIES ALL OTHER COMPLAINTS, "OTHER THAN THAT, I FEEL WONDERFUL" EKG ORDERED Triage Nurses Notes Reviewed? yes Onset: Abrupt Duration: day(s): (1), constant, waxing and waning Timing: recent history Severity: mild Severity Numbers: 1 Pain/Injury Location: Left: Arm. Method of Injury: unknown Modifying Factors: Worsens With: other (EXTENDING ARM). Associated Symptoms: TINGLING HPI: 56-year-old male with history of recent N STEMI, hypertension hypothyroid anxiety presents to the ER for evaluation complaining of left arm tingling after he woke up in the middle the night to urinate. He states the symptoms are intermittent in nature and worse with extending his arm. He denies any associated chest pain shortness of breath back pain jaw pain dizziness lightheadedness. The patient states he became concerned after he missed 1 day's dose of all of his medication 2 days ago. He has since taken all his medication. He denies any swelling to his arm rashes to the skin fever chills Past History Travel History Traveled to [place] past 21 day No Medical History Any Pertinent Medical History? 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 No Review of Systems Review of Systems Constitutional: Reports: see HPI. Comments Review of systems: See HPI, All other systems negative. Constitutional, no chills no fever, no malaise HEENT: no sore throat no congestion, no ear pain Cardiovascular: No chest pain , no palpitation Skin: no rashes, no change in skin Respiratory: No dyspnea no cough no sputum no hemoptysis GI: No nausea no vomiting, no diarrhea, Muscle skeletal: No joint pain, no joint swelling, no back pain, no neck pain, Neurologic: no confusion, no headache Psych: No stress Heme/endocrine: No bruising Immunology: No lymphadenopathy Physical Exam Physical Exam General Appearance: well developed/nourished, no apparent distress, alert Comments: Well-developed well-nourished patient in no apparent distress. HEENT: Atraumatic, extraocular motion intact Neck: Supple, FROM Back: FROM Cardiovascular: Regular rate and rhythms no murmurs rubs or gallops, Respiratory: Chest nontender.There were no bony deformities, no asymmetry. No respiratory distress. Patient speaking in full complete sentences. Breath sounds clear to auscultation bilaterally: NO W/R/R Extremities: full range of motion,5 out of 5 strength in bilateral upper extremities, normal sensation, radial pulse 2+ bilaterally Neuro: awake, alert, and oriented to person, place and time. There were no obvious focal neurologic abnormalities. Skin: Warm & dry;No appreciable rash on exposed skin Psych: Mood affect normal, normal memory normal judgment. , Progress Differential Diagnosis: DVT, sprain, tendon injury, radiculopathy, ami Plan of Care: Orders Procedure Date/time Status TROPONIN LEVEL 05/04 1545 Complete COMPREHENSIVE METABOLIC PANEL 05/04 1545 Complete CBC WITHOUT DIFFERENTIAL 05/04 154 Complete EKG 05/04 1409 Active Laboratory Tests 05/04/17 1606: Anion Gap 11, Estimated GFR > 60, BUN/Creatinine Ratio 14.0, Glucose 95, Calcium 10.3 H, Total Bilirubin 1.1, AST 30, ALT 63, Alkaline Phosphatase 74, Troponin I < 0.01, Total Protein 6.9, Albumin 4.9, Globulin 2.0, Albumin/Globulin Ratio 2.5 H, CBC w Diff NO MAN DIFF REQ, RBC 4.85, MCV 92.2, MCH 31.6 H, RDW 14.7 H , MPV 10.3, Gran % 77.1 H, Lymphocytes % 15.6 L, Monocytes % 6.1, Eosinophils % 0.8, Basophils % 0.4, Absolute Granulocytes 5.0, Absolute Lymphocytes 1.0 L, Absolute Monocytes 0.4, Absolute Eosinophils 0, Absolute Basophils 0, PUBS MCHC 34.3 Patient resting in no apparent distress at this time ultrasound labs ordered I discussed with the patient at length all of their results. I had an extensive conversation regarding need for close follow up with their primary care physician this week as well as return precautions. I answered all of their questions, they feel comfortable with the plan and follow-up care. (REAGAN TRIPP,KANDACE) Diagnostic Imaging: Viewed by Me: Ultrasound. Discussed w/RAD: Ultrasound. Radiology Impression: PATIENT: ARTURO MENDOZA PRESENT AGE: 56 PATIENT ACCOUNT NO: [id number] : 58 LOCATION: [facility] ORDERING PHYSICIAN: KANDACE TRIPP SERVICE DATE: 05/04/17-6587 EXAM TYPE: US - US-UNILATERAL VENOUS DOPPLER EXAMINATION: DOPPLER VENOUS ULTRASOUND UPPER EXTREMITY, LEFT CLINICAL INFORMATION: Left upper extremity pain. COMPARISON: None. TECHNIQUE: Grayscale, Doppler and spectral analysis of the upper extremity and neck was performed. FINDINGS: There is no evidence for a deep venous thrombosis within the visualized upper extremity and neck veins. There is normal flow, compression and augmentation. IMPRESSION: Unremarkable examination. Specifically, no evidence for DVT. DICTATED BY: XUAN CATALAN MD DATE/TIME DICTATED:05/04/171706 OPERATOR CAVITY PUMP:FARAZ DATE/TIME TRANSCRIBED:1706 CONFIDENTIAL, DO NOT COPY WITHOUT APPROPRIATE AUTHORIZATION. < Electronically signed in Other Vendor System> SIGNED BY: XUAN CATALAN MD 05/04/17 1711 Initial ED EKG: NSR AT 60, NO ACUTE ST SEG CHANGES, NORMAL AXIS Prior EKG: unchanged (01/2017) Departure Departure Time of Disposition: 1721 Disposition: HOME OR SELF CARE Condition: Stable Clinical Impression Primary Impression: Paresthesia Referrals: MAGY ESPANA,MALCOLM Avelar (PCP/Family) Additional Instructions: Follow-up with your primary care physician return to the emergency room with any concerns. Departure Forms: Customer Survey General Discharge Information
[2017-05-04 16:18] LABS: ABSOLUTE BASOPHIL COUNT 0 /CUMM (0.0-0.2); ABSOLUTE EOSINOPHIL COUNT 0 /CUMM (0.0-0.7); ABSOLUTE MONOCYTE COUNT 0.4 /CUMM (0.10-0.60); BASOPHIL % 0.4 % (0.0-2.0); EOSINOPHIL % 0.8 % (0-5); GRANULOCYTE % 77.1 % (42.2-75.2); HEMATOCRIT 44.7 % (42-52); MEAN CORPUSCULAR HGB 31.6 PG (27.0-31.0); MEAN CORPUSCULAR HGB CONC 34.3 G/DL (33.0-37.0); MEAN CORPUSCULAR VOLUME 92.2 FL (80.0-94.0); MEAN PLATELET VOLUME 10.3 FL (7.4-10.4); PLATELET COUNT 165 /CUMM (130-400); RBC DISTRIBUTION WIDTH 14.7 % (11.5-14.5); RED BLOOD CELL CT 4.85 /CUMM (4.70-6.10); WHITE BLOOD CELL COUNT 6.4 /CUMM (4.8-10.8)
[2017-05-04] MEDS ORDERED: PLAVIX75 M1 PO (16:41)
[2017-05-04] MEDS ORDERED: ATORVASTATIN CA10 M1 PO (16:42)
[2017-05-04] MEDS ORDERED: LO-DOSE ASPIRIN81 MG PO (16:43)
--- NOTE | 2017-05-04 17:11 | ULTRASOUND REPORT ---
EXAMINATION: DOPPLER VENOUS ULTRASOUND UPPER EXTREMITY, LEFT CLINICAL INFORMATION: Left upper extremity pain. COMPARISON: None. TECHNIQUE: Grayscale, Doppler and spectral analysis of the upper extremity and neck was performed. FINDINGS: There is no evidence for a deep venous thrombosis within the visualized upper extremity and neck veins. There is normal flow, compression and augmentation. IMPRESSION: Unremarkable examination. Specifically, no evidence for DVT.
[2017-05-04 17:29] VITALS: BP 121/72
== END 2017-05-04 17:29 ==
LOC: ERH 14:03
PROVIDERS: Physician Assistant Medical
DX: R20.2 Paresthesia of skin (principal)
CPT/HCPCS: 93005; 93010

== ENCOUNTER 2017-12-09 15:05 | Emergency (ER) | payer OTHER ==
[~2017-12-09] VITALS: Ht 172.7 cm; Wt 68.0 kg
[~2017-12-09 15:05] MED LIST changes: +ALPRAZOLAM0.5 M4 PO; +ATORVASTATIN CA10 M1 PO; +AUGMENTIN 875-1 EACH PO; +CENTRUM SILVER1 EAC3 PO; +LO-DOSE ASPIRIN81 MG PO; -METOPROLOL SUCC25 M1 PO; +METOPROLOL SUCC50 M2 PO; -MULTI-DAY VITA1 EACH PO
[2017-12-09 15:38] VITALS: BP 111/74
--- NOTE | 2017-12-09 15:46 | ED SKIN/ALLERGY COMPLAINT ---
History of Present Illness General Chief Complaint: General Adult Stated Complaint: PT HAS A INCISION THAT MIGHT BY INFECTED Source: patient Exam Limitations: no limitations Vital Signs & Intake/Output Vital Signs & Intake/Output Vital Signs Date Time Temp Pulse Resp B/P B/P Pulse O2 O2 Flow FiO2 Mean Ox Delivery Rate 12/09 1538 97.0 80 18 111/74 98 Room Air ED Intake and Output 12/10 0000 12/09 1200 Intake Total 0 Output Total Balance 0 Intake, Oral 0 Patient 150 lb Weight Weight Reported by Patient Measurement Method Allergies Coded Allergies: NO KNOWN ALLERGIES (07/29/16) Reconcile Medications Alprazolam 0.5 MG TABLET 1 TAB PO DAILY PRN ANXIETY (Reported) Amoxicillin/Potassium Clav (Augmentin 875-125 Tablet) 875 MG-125 MG TABLET 1 TAB PO BID ppx Aspirin (Lo-Dose Aspirin EC) 81 MG TABLET.DR 1 TAB PO DAILY HEART/BLOOD ( Reported) Atorvastatin Calcium 10 MG TABLET 1 TAB PO Q48 CHOLESTEROL (Reported) Cephalexin (Keflex) 500 MG CAPSULE 1 CAP PO TID CELLULITIS Cholecalciferol (Vitamin D3) (Vitamin D) 2,000 UNIT TABLET 1 TAB PO DAILY SUPPLEMENT (Reported) Clopidogrel Bisulfate (Plavix) 75 MG TABLET 1 TAB PO DAILY BLOOD THINNER ( Reported) Cyanocobalamin (Vitamin B-12) (Vitamin B-12) 500 MCG TAB.SUBL 1 TAB PO DAILY SUPPLEMENT (Reported) Levothyroxine Sodium 50 MCG TABLET 1 TAB PO DAILY AC THYROID (Reported) Losartan Potassium 50 MG TABLET 1 TAB PO BID BP (Reported) Metoprolol Succinate 50 MG TAB.ER.24H 1 TAB PO DAILY HEART (Reported) Multivit-Min/FA/Lycopen/Lutein (Centrum Silver Tablet) 0.4 MG-300 MCG-250 MCG TABLET 1 TAB PO QPM VITAMIN SUPPORT (Reported) Mupirocin Calcium (Bactroban) 2 % CREAM..G. 1 LUISA TOP TID CELLULITIS apply to affected area(s) Triage Note: PT TO ER C/C INCREASED REDNESS TO INGUINAL HERNIA REPAIR SUTURE LINE FROM 08/24. DENIES FEVERS/CHILLS. Triage Nurses Notes Reviewed? yes Onset: Gradual Duration: day(s): (1) Timing: no prior history Severity: mild Severity Numbers: 3 Location: INGUINAL AREA Possible Factors: no cause identified No Modifying Factors: none HPI: Patient is a 57-year-old male presenting to the emergency department with chief complaint of redness to his left inguinal hernia repair scar that started today. Denies any associated pain. No discharge from the incision. Patient denies any fevers or chills. Denies taking anything or putting anything on the area to help with symptoms. Denies any urinary frequency urgency or dysuria. No nausea or vomiting. (Charlotte King) Past History Travel History Traveled to [place] past 21 day No Medical History Any Pertinent Medical History? see below for history Neurological: NONE EENT: NONE Cardiovascular: hypertension, hyperlipidemia, myocardial infarction Respiratory: NONE Gastrointestinal: NONE Hepatic: NONE Renal: NONE Musculoskeletal: NONE Psychiatric: anxiety Endocrine: hypothyroidism Blood Disorders: NONE Cancer(s): NONE EMPLOYMENT OFFICER/Reproductive: NONE History of MRSA: No History of VRE: No History of CDIFF: No Tetanus Vaccine: 01/26/13 Surgical History Surgical History: non-contributory Psychosocial History Who do you live with Spouse What is your primary language Greek Tobacco Use: Never used Family History Hx Contributory? No (Charlotte King) Review of Systems Review of Systems Constitutional: Reports: no symptoms. Comments Review of systems: See HPI, All other systems negative. Constitutional, no chills fever or weight loss HEENT: No visual changes no sore throat no congestion Cardiovascular: No chest pain ,palpitation Skin, no jaundice Respiratory: No dyspnea cough sputum GI: No nausea no vomiting : No dysuria No hematuria Muscle skeletal: no back pain, no neck pain, Neurologic: No numbness Immunology: No splenectomy or history of AIDS (Charlotte King) Physical Exam Physical Exam General Appearance: well developed/nourished, no apparent distress, alert, awake , comfortable Comments: Well-developed well-nourished person in no acute distress HEENT: Atraumatic, normocephalic Neck: Normal inspection Respiratory: No respiratory distress. Abdomen: Soft, nontender nondistended Extremity: No edema Neuro: Alert oriented x3 Skin: well-healed surgical incisions noted on the bilateral inguinal area. Inguinal incision on the left appears slightly erythematous, erythema does not extend outside of the scar. No pain to palpation over this area. No palpable mass or fluctuant area. Psych: Mood and affect is normal, memory and judgment is normal. (Charlotte King) Progress Differential Diagnosis: CELLULITIS, SCAR TISSUE IRRITATION, HYPERPIGMENTATION OF SCAR TISSUE, FOLLICULITIS Plan of Care: Patient likely has irritation along the scar. Minimal erythema compared to right surgical incision. No palpable fluctuance or mass. And nontender. Patient afebrile. Patient treated with topical antibiotics. Patient is very anxious and concerned that this will become infected. He is given a prescription for Keflex and told only to start taking if the redness starts spreading outside of the scar area. He will also follow-up with his surgeon on Monday. Educated on signs and symptoms return. (Charlotte King) Departure Departure Time of Disposition: 1550 Disposition: HOME OR SELF CARE Condition: Stable Clinical Impression Primary Impression: Cellulitis Qualifiers: Site of cellulitis: unspecified site Qualified Code: L03.90 - Cellulitis, unspecified Referrals: Yareli ESPANA,Dorota Avelar (PCP/Family) Additional Instructions: FOLLOW UP WITH YOUR SURGEOUN CALL MONDAY TO MAKE APPT. TAKE KELFEX AND USE BACTROBAN DIRECTED. RETURN FOR WORSENING SYMPTOMS. Departure Forms: Customer Survey General Discharge Information Prescriptions: Current Visit Scripts Mupirocin Calcium (Bactroban) 1 LUISA TOP TID #30 GM apply to affected area(s) Cephalexin (Keflex) 1 CAP PO TID #30 CAP (Charlotte King) PA/TELEVISION PRODUCTION TECHNICIAN Co-Sign Statement Statement: ED Attending supervision documentation- [] I saw and evaluated the patient. I have also reviewed all the pertinent lab results and diagnostic results. I agree with the findings and the plan of care as documented in the PA's/TELEVISION PRODUCTION TECHNICIAN's documentation. [X] I have reviewed the ED Record and agree with the PA's/TELEVISION PRODUCTION TECHNICIAN's documentation. [] Additions or exceptions (if any) to the PAs/TELEVISION PRODUCTION TECHNICIAN's note and plan are summarized below: [] (Dwight Lopez DO)
[2017-12-09] MEDS ORDERED: BACTROBAN15 GM TOP (15:54)
[2017-12-09] MEDS ORDERED: KEFLEX500 M1 PO (15:54)
== END 2017-12-09 15:58 ==
LOC: ERH 15:05
DX: L03.314 Cellulitis of groin (principal)